=== PATIENT | male | born 1960 | race Caucasian/White ===

== ENCOUNTER 2021-01-23 18:46 | Emergency (ER) | payer OTHER, SELFPAY ==
[2021-01-23 19:17] VITALS: BP 149/79; PULSE 94; RESP 18; TEMP 36.8; O2SAT 95; BMI 42.3
--- NOTE | 2021-01-23 20:28 | ED_ITS ---
HPI - Skin/Abscess/Foreign Bdy General Chief complaint: Skin/Abscess/Foreign Body Stated complaint: abscess Source: patient Mode of arrival: ambulatory Limitations: no limitations History of Present Illness HPI narrative: 60-year-old male with significant past medical history for hypertension, coronary artery disease, and obesity presents with cellulitis and abscess to the right distal medial aspect of forearm. He was treated approximately 1 week ago with I&D and doxycycline. He states that for several days after I&D and doxycycline that the area has been draining, and that the swelling and redness has decreased over the past week. He noticed today that the lump is larger, more tender, the redness seems to be increasing. When he presses on the proximal aspect of the abscess he notes drainage at the more distal aspect of the wound. He does not describe any fevers, chills, chest pain or pressure, palpitations, shortness of breath, diaphoresis, abdominal pain, abdominal distention, dysuria, hematuria, edema, dizziness, lightheadedness, weakness, fatigue, or any other concerning symptoms. MD complaint: abscess/boil Onset (ago): week(s) (1) Tetanus up to date: yes Location: RUE Severity: moderate Severity scale (1-10): 6 Quality: aching and constant Pain Consistency: constant Relieving factors: none Exacerbating factors: palpation Context: recent antibiotic Associated symptoms: denies other symptoms Treatments prior to arrival: attempted to drain pus at home and antibiotic Related Data Previous Rx's Medication Instructions Recorded doxycycline monohydrate 100 mg PO BID 5 Days #10 cap 01/23/21 sulfamethoxazole-trimethoprim 1 tab PO Q12H 10 Days #20 tab 01/23/21 [Bactrim DS] Allergies Allergy/AdvReac Type Severity Reaction Status Date / Time almond [ALMONDS] Allergy Unknown UNKNOWN Unverified 07/29/20 14:54 cat dander [CAT] Allergy Unknown UNKNOWN Unverified 07/29/20 14:54 pecan nut [PECAN] Allergy Unknown UNKNOWN Unverified 07/29/20 14:54 tree and shrub pollen [TREE] Allergy Unknown UNKNOWN Unverified 07/29/20 14:54 walnut [WALNUT] Allergy Unknown UNKNOWN Unverified 07/29/20 14:54 GRASS Allergy Unknown UNKNOWN Uncoded 07/29/20 14:54 Review of Systems Review of Systems: Constitutional: No Fever, No Chills ENT/Mouth: No Ear Pain, No Hoarseness, No sore throat Eyes: No Eye Pain, No Swelling, No Redness, No Foreign Body Cardiovascular: No Chest Pain, No SOB Respiratory: No Cough, No Dyspnea Gastrointestinal: No Nausea, No Vomiting, No Diarrhea, No abdominal Pain Genitourinary: No Dysuria, No Hematuria Musculoskeletal: No joint pain, No Myalgias, No Joint Swelling Skin: Positive abscess to the right medial aspect of the distal forearm, No Skin lacerations, No rash Neuro: No Weakness, No Numbness, No Paresthesias, No Loss of Consciousness, No Dizziness, No Headache Psych: No Anxiety/Panic, No Depression Heme/Lymph: no easy bruising, no Lymphadenopathy Endocrine: No Polyuria, No Polydipsia Yes all other systems are reviewed and are negative [facility] Past Medical History Attestation statement: The following information was validated with the patient. Source: old records reviewed Medical History (Updated 01/23/21 @ 20:56 by Vilma Kaur NP) Carotid artery disease Carotid artery disease Hypertension Social History Social History Alcohol intake: never Smoked in Last 30 Days: No Use of substances other than those prescribed or required for medical reasons: No Advance Directives: No Advance Directives Information Provided: No Physical Exam Vital Signs: Vital Signs: Last Vital Signs Temp 98.3 F 01/23/21 19:17 Pulse 94 01/23/21 19:17 Resp 18 01/23/21 19:17 BP 149/79 H 01/23/21 19:17 Pulse Ox 95 01/23/21 19:17 Body Mass Index 42.3 Appearance: Alert. Oriented X3. No acute distress. Eyes: Pupils equal, round and reactive to light. EOMI ENT: Pharynx normal. Neck: Normal inspection. Neck supple. CVS: Normal heart rate and rhythm. Pulses normal. Respiratory: No respiratory distress. Lung sounds clear to auscultation all lobes Abdomen: Soft and nontender. Skin: 6 cm area of induration erythema with multiple pustules that are draining to the right medial aspect of the distal forearm, otherwise all other visible Skin warm and dry. Normal skin color. Normal skin turgor. Extremities: No lower extremity edema. Moves all extremities against resistance, strength 5/5, equal pulses and brisk capillary refill to all extremities Neuro: No motor deficit. No sensory deficit. Cranial nerves 2-12 intact, gait well balanced well coordinated Course Course Course Narrative: 60-year-old male with significant past medical history for hypertension, coronary artery disease, and obesity presents with cellulitis and abscess to the right distal medial aspect of forearm. Wound started off as a pustule and gradually increased, has been seen by primary care about a week ago they performed I&D and gave doxycycline. He has been on doxy for 5 days, noticed an improvement for about 4 days after I&D, has been using warm compress and trying to express drainage on his own however today he noted that the wound is getting bigger and the reddened area is larger. We will I&D this abscess, add Bactrim and have patient follow-up in 3 days for wound check. Patient is afebrile, appears nontoxic, vital signs are within normal limits and stable. Prepped and draped in sterile fashion, wound culture obtained, approximately 5 mL of purulent drainage expressed from the site. Patient tolerated procedure well. Fifteen blade used to make a 3 mm incision. He does not have any axillary or cervical lymphadenopathy, has full range of motion to all extremities, no tendon injury or deficit noted, brisk capillary refill and equal pulses. Patient verbalized understanding of and agrees plan of care discharge home. Procedures Abscess I/D Site: upper extremity Side (if applicable): right Technique: incised with blade Amount of fluid expressed (mL): 5 Sent for culture/gram staining?: Yes Irrigation: No Packing used?: none MDM - Skin/Abscess/Foreign Bdy Differential Diagnosis Differential diagnosis: Likely abscess of skin or subcutaneous tissue and cell ulitis Medical Records Attestation: I reviewed the patient's medical records. Discharge Plan Discharge Clinical Impression: Abscess of skin or subcutaneous tissue Qualifiers: Site of cutaneous abscess: extremity Site of cutaneous abscess of extremity: upper extremity Laterality: right Qualified Code(s): L02.413 - Cutaneous abscess of right upper limb Cellulitis Qualifiers: Site of cellulitis: extremity Site of cellulitis of extremity: upper extremity Laterality: right Qualified Code(s): L03.113 - Cellulitis of right upper limb Patient Disposition: Home, Self-Care Instructions: Cellulitis (ED), Abscess (ED), Abscess Follow-up (ED), Abscess Incision and Drainage (DC) Additional Instructions: You were evaluated for recurrent abscess and cellulitis to the right forearm. We made a small incision and drained some purulent fluid. Your culture is pending. Please take doxycycline for 10 days, I prescribed more medication for you. We have added Bactrim DS 1 tab twice a day for the next 10 days. Please continue to use warm compresses, and return for wound evaluation in 3 days. If you notice fevers, chills, difficulty moving your arm, loss of sensation or any other concerning symptoms please return to the emergency department immediately. The symptoms are an indication of a serious illness called sepsis. Use Tylenol or Motrin as needed for pain management. Thank you for choosing this emergency department for evaluation. Please follow-up with primary care physician as needed. Return to the emergency department for any new, concerning, or worsening symptoms. Prescriptions: New doxycycline monohydrate 100 mg capsule 100 mg PO BID 5 Days Qty: 10 RF: 0 sulfamethoxazole-trimethoprim [Bactrim DS] 800-160 mg tablet 1 tab PO Q12H 10 Days Qty: 20 RF: 0 Interventions: ED Discharge Assessment Last Done: 01/23/21 21:18 Discharge Date/Time: 01/23/21 21:13
--- NOTE | 2021-01-23 21:52 | PC.NURSE ---
PT VERBALIZED AN UNDERSTANDING OF WOUND CARE AND WORSENING S/SX OF INFECTION. PT PINK AREA TRACED WITH WOUND MARKER AND PT WILL F/U IN 2 DAYS FOR WOUND CHECK HERE AT THE ED.
== END 2021-01-23 21:13 | disposition home or self-care (01) ==
PROVIDERS: Emergency Provider Internal Medicine; PCP Nurse Practitioner Adult Health
DX: L02.413 Cutaneous abscess of right upper limb (principal); L03.113 Cellulitis of right upper limb; I25.10 Atherosclerotic heart disease of native coronary artery without angina pectoris; I10 Essential (primary) hypertension; Z79.899 Other long term (current) drug therapy
CPT/HCPCS: 10060; 87071; 87147; 87186; 87205; 99284

== ENCOUNTER 2021-01-26 07:57 | Emergency (ER) | payer OTHER, SELFPAY ==
[2021-01-26 08:09] VITALS: BP 150/83; PULSE 96; RESP 18; TEMP 36.9; O2SAT 97; BMI 42.3
--- NOTE | 2021-01-26 08:23 | ED.WOUNDLAC ---
HPI - Wound/Laceration General Chief Complaint: Wound/Laceration Stated Complaint: wound check Time Seen by Provider: 01/26/21 08:14 Source: patient Mode of arrival: ambulatory Limitations: no limitations History of Present Illness HPI narrative: Patient history of MRSA infection in the right wrist for last 1 week on doxycycline and Bactrim was seen here 3 days ago I and D was done comes here for wound recheck. Wound looks much better now no significant pus discharge patient denies any fever Related Data Previous Rx's Medication Instructions Recorded doxycycline monohydrate 100 mg PO BID 5 Days #10 cap 01/23/21 sulfamethoxazole-trimethoprim 1 tab PO Q12H 10 Days #20 tab 01/23/21 [Bactrim DS] sulfamethoxazole-trimethoprim 1 tab PO BID #60 tab 01/26/21 [Bactrim DS] Allergies Allergy/AdvReac Type Severity Reaction Status Date / Time almond [ALMONDS] Allergy Unknown UNKNOWN Unverified 07/29/20 14:54 cat dander [CAT] Allergy Unknown UNKNOWN Unverified 07/29/20 14:54 pecan nut [PECAN] Allergy Unknown UNKNOWN Unverified 07/29/20 14:54 tree and shrub pollen [TREE] Allergy Unknown UNKNOWN Unverified 07/29/20 14:54 walnut [WALNUT] Allergy Unknown UNKNOWN Unverified 07/29/20 14:54 GRASS Allergy Unknown UNKNOWN Uncoded 07/29/20 14:54 Review of Systems Review of Systems: Yes all other systems are reviewed and are negative PMFSH Past Medical History Medical History Carotid artery disease Carotid artery disease Hypertension Social History Social History Alcohol intake: never Advance Directives: No Advance Directives Information Provided: No Physical Exam Vital Signs: Vital Signs: Last Vital Signs Temp 98.4 F 01/26/21 08:09 Pulse 96 01/26/21 08:09 Resp 18 01/26/21 08:09 BP 150/83 H 01/26/21 08:09 Pulse Ox 97 01/26/21 08:09 Body Mass Index 42.3 Const: General: no acute distress Orientation/consciousness: patient oriented x3 Neuro: General: patient oriented x3 Extrem: Elbow/forearm/wrist images: 1. Healing abscess with induration no fluctuancy seen good range of painless movement MDM - Wound/Laceration MDM Narrative Medical decision making narrative: Patient with healing abscess right forearm , pus culture showed MRSA which is resistant to doxycycline but patient already on Bactrim advised the patient to continue Bactrim for now Discharge Plan Discharge Clinical Impression: Abscess Patient Disposition: Home, Self-Care Instructions: Abscess Follow-up (ED) Additional Instructions: Local care as advised. Continue antibiotics, your culture is resistant to doxycycline you may continue till finished the course. Continue Bactrim Prescriptions: New sulfamethoxazole-trimethoprim [Bactrim DS] 800-160 mg tablet 1 tab PO BID Qty: 60 RF: 0 No Action doxycycline monohydrate 100 mg capsule 100 mg PO BID 5 Days Qty: 10 RF: 0 sulfamethoxazole-trimethoprim [Bactrim DS] 800-160 mg tablet 1 tab PO Q12H 10 Days Qty: 20 RF: 0 Interventions: ED Discharge Assessment Last Done: 01/26/21 08:35 Discharge Date/Time: 01/26/21 08:35
== END 2021-01-26 08:35 | disposition home or self-care (01) ==
PROVIDERS: Emergency Provider Internal Medicine; PCP Nurse Practitioner Adult Health
DX: L02.413 Cutaneous abscess of right upper limb (principal); M79.631 Pain in right forearm; Z79.899 Other long term (current) drug therapy
CPT/HCPCS: 99283

== ENCOUNTER 2021-12-02 04:49 | Emergency (ER) | payer MEDICAID, SELFPAY ==
[2021-12-02 05:16] VITALS: BP 162/82; PULSE 87; RESP 16; TEMP 36.8; O2SAT 92; BMI 36.0
[2021-12-02 05:18] VITALS: BP 163/80; PULSE 87; RESP 18; TEMP 36.8; O2SAT 100; BMI 36.0
== END 2021-12-02 06:40 | disposition left against medical advice (07) ==
PROVIDERS: Emergency Provider Emergency Medicine; PCP Nurse Practitioner Adult Health
DX: K08.89 Other specified disorders of teeth and supporting structures (principal)
CPT/HCPCS: 99281; 99284

== ENCOUNTER 2022-04-29 16:52 | Emergency (ER) | payer MEDICAID, SELFPAY ==
--- NOTE | ~2022-04-29 | XR_ITS ---
EXAMINATION: XR CHEST CLINICAL INFORMATION: Cough. COMPARISON: Chest radiograph 12/03/2019 TECHNIQUE: Frontal view of the chest was obtained. FINDINGS: Normal appearance of the cardiomediastinal structures. No effusions or pneumothoraces. Normal pattern of pulmonary vasculature. No focal pulmonary consolidation. Partial visualization of multiple vascular clips in projection with the medial right lower anterior cervical triangle. XR/XR chest 1V IMPRESSION: *No acute cardiopulmonary abnormalities.
[2022-04-29 16:58] VITALS: BP 161/96; PULSE 102; RESP 16; TEMP 36.7; O2SAT 95; BMI 38.9
[2022-04-29 17:29] LABS: COVID-19 Test Negative (Negative); IDNOW Serial# 08D9AD1C; Influenza A Negative (Negative); Influenza B2 Negative (Negative)
[2022-04-29] MEDS: Albuterol/Iprat 2.5/0.5MG 3 ML AMPUL.NEB INHALE (20:47)
[2022-04-29 20:48] VITALS: PULSE 102; RESP 18; O2SAT 93
--- NOTE | 2022-04-29 21:23 | ED_ITS ---
HPI - URI/Sore Throat General Chief Complaint: Upper Respiratory Symptoms Stated Complaint: sinus infection/coughing Time Seen by Provider: 04/29/22 20:16 Source: patient Mode of arrival: ambulatory Limitations: no limitations History of Present Illness HPI Narrative: 62-year-old male with a history of asthma here with reports of 3 weeks of cough, chest congestion, wheezing, sinus pressure and sinus pain. Patient has tested himself multiple times for COVID and all are negative. He was seen at urgent care and was prescribed 1 week of prednisone which she completed yesterday. He is here as he is having continued symptoms and does not feel any relief from his albuterol or completion of the prednisone. He denies any chest pain, shortness of breath, fever, leg swelling or leg pain. He denies any history of admissions for asthma or intubation history. He is vaccinated for COVID Related Data Home Medications Medication Instructions Recorded Confirmed levothyroxine 100 mcg tablet 1 tab PO DAILY 12/02/21 12/02/21 lorazepam 1 mg tablet 1 mg PO DAILY 12/02/21 12/02/21 losartan 25 mg tablet 1 tab PO DAILY 12/02/21 12/02/21 sertraline 100 mg tablet 1 tab PO BID 12/02/21 12/02/21 simvastatin 40 mg tablet 1 tab PO BEDTIME 12/02/21 12/02/21 Previous Rx's Medication Instructions Recorded benzonatate 200 mg capsule 200 mg PO TID PRN cough #20 caps 04/29/22 codeine 10 mg-guaifenesin 100 mg/5 10 ml PO Q4-6H PRN cough #120 mL 04/29/22 mL oral liquid (Virtussin AC) doxycycline monohydrate 100 mg 100 mg PO BID #20 caps 04/29/22 capsule prednisone 20 mg tablet 40 mg PO DAILY #8 tabs 04/29/22 Allergies Allergy/AdvReac Type Severity Reaction Status Date / Time cephalexin [From Keflex] Allergy Severe Anaphylaxis Verified 12/02/21 05:31 almond [ALMONDS] Allergy Unknown UNKNOWN Unverified 07/29/20 14:54 cat dander [CAT] Allergy Unknown UNKNOWN Unverified 07/29/20 14:54 pecan nut [PECAN] Allergy Unknown UNKNOWN Unverified 07/29/20 14:54 tree and shrub pollen [TREE] Allergy Unknown UNKNOWN Unverified 07/29/20 14:54 walnut [WALNUT] Allergy Unknown UNKNOWN Unverified 07/29/20 14:54 GRASS Allergy Unknown UNKNOWN Uncoded 07/29/20 14:54 Review of Systems Review of Systems: Yes all other systems are reviewed and are negative Constitutional: Constitutional: Reports no additional constitutional complaints, Denies body ache(s), Denies chills, Denies fever(s), Denies headache(s) and Denies weakness Eyes: Eyes: Reports no additional eye complaints and Denies change in vision ENT: Reports system reviewed and no additional complaints, except as documented, Denies dizziness, Denies headache(s), Denies nasal congestion, Denies nasal discharge, Denies neck pain, Reports sinus pain and Reports sinus pressure Cardiovascular: Cardiovascular: Reports no additional cardiovascular complaints, Denies chest pain, Denies leg edema and Denies dyspnea Respiratory: Respiratory: Reports no additional respiratory complaints, Re ports cough, Denies dyspnea and Reports wheezing Gastrointestinal: Gastrointestinal: Reports no additional gastrointestinal complaints, Denies abdominal pain, Denies diarrhea, Denies nausea and Denies vomiting Genitourinary: Genitourinary: Denies urinary incontinence Musculoskeletal: Musculoskeletal: Reports no additional musculoskeletal complaints, Denies back pain, Denies arthralgias, Denies joint swelling, Denies neck pain, Denies numbness and Denies tingling Integumentary/Breasts: Skin/Breast: Reports system reviewed and no additional complaints, except as docu and Denies rash Neurologic: Denies Abnormal speech present, Denies dizziness, Denies headache(s), Denies numbness, Denies tingling and Denies weakness Allergic/Immunologic: Allergic/Immunologic: Reports wheezing PMFSH Past Medical History Attestation statement: The following information was validated with the patient. Source: old records reviewed Medical History Carotid artery disease Carotid artery disease Hypertension Social History Social History Alcohol intake: never Patient Tobacco Use Status: Current everyday Tobacco user Advance Directives: No Advance Directives Information Provided: No Physical Exam Vital Signs: Vital Signs: Last Vital Signs Temp 98.1 F 04/29/22 16:58 Pulse 102 H 04/29/22 20:48 Resp 18 04/29/22 20:48 BP 161/96 H 04/29/22 16:58 Pulse Ox 95 04/29/22 16:58 O2 Del Method 04/29/22 16:58 BMI result Body Mass Index 38.9 Const: General: cooperative, healthy appearing, comfortable and no acute distress Orientation/consciousness: patient oriented x3 Limitations: no limitations HEENT: Head: Yes normal to inspection Ears: hearing grossly normal bilaterally and TM abnormal (Bilateral effusion) General nose exam: Normal external nose present Face and sinus: Yes normal facial exam and Yes sinus tenderness (Frontal and maxillary. Nasal turbinate erythema bilaterally) Mouth: Normal oral and palatal mucosa present Throat: Yes posterior oropharynx normal Eyes: General: appearance normal, both eyes and all related structures Pupils: Equal, round and reactive pupils present Neck: Neck: Yes normal visual inspection, Yes full ROM and Yes no lymphadenopathy Chest: Chest palpation & inspection: normal inspection of the chest Resp: Other: Expiratory wheezing throughout Effort & Inspection: normal respiratory effort Cardio: Rate: regular rate Rhythm: regular rhythm Peripheral pulses: Peripheral pulses 2+ throughout GI: Inspection: Yes normal to inspection Palpation (GI): Soft to palpation and nontender Auscultation: normal bowel sounds Back/Spine/Pelvis: Thoracic/Lumbar Spine: thoracic and lumbar spine normal to inspection Skin: General skin exam: no rashes or lesions noted Neuro: General: patient oriented x3, no focal motor deficits and normal sensation to monofilament Cranial nerves: Yes Equal, round and reactive pupils present Cognition (Neuro): normal cognition Speech: No Abnormal speech present Gait exam (Neuro): Normal gait present Motor exam (neuro): 5/5 motor strength present throughout Extrem: General: Yes normal to inspection Course Course Course Narrative: 2199-chest x-ray shows no acute finding. COVID screen negative. patient feels improved receiving DuoNeb. Likely bronchitis, sinusitis,asthma flare MDM - URI/Sore Throat MDM Narrative Medical decision making narrative: 8-year-old male with a known history of asthma here with 3 weeks of chest congestion cough, wheezing, sinus pressure and pain despite using albuterol in completing a 6 day course of prednisone. On arrival expiratory wheezing throughout. Exam consistent with sinusitis will give DuoNeb, p.o. prednisone, cough suppressant, oral antibiotic and reassess Obtain chest x-ray, COVID screen Medical Records Attestation: I reviewed the patient's medical records. Lab Data Attestation: I reviewed the patient's lab results. Labs: Lab Results 04/29/22 04/29/22 Range/Units 17:06 17:06 COVID-19 ([facility]) Negative (Negative) COVID-19 Clin Com See Note Influenza Type A ([facility]) Negative (Negative) Influenza Type B ([facility]) Negative (Negative) Influenza A & B Note See Note Imaging Data Chest x-ray: Attestation: I personally reviewed and interpreted this imaging study as follows: Radiologist's impression: [address] [address] XRay Report Signed Patient: Truman Rosas MR#: [id number] : 1960 Acct:[id number] Age/Sex: 62 / M ADM Date: 04/29/22 Loc: .ED Attending Dr: Ordering Physician: Generic ED Physician Date of Service: 04/29/22 Procedure(s): XR chest 1V Accession Number(s): [id number] cc: Generic ED Physician~ EXAMINATION: XR CHEST CLINICAL INFORMATION: Cough. COMPARISON: Chest radiograph 12/03/2019 TECHNIQUE: Frontal view of the chest was obtained. FINDINGS: Normal appearance of the cardiomediastinal structures. No effusions or pneumothoraces. Normal pattern of pulmonary vasculature. No focal pulmonary consolidation. Partial visualization of multiple vascular clips in projection with the medial right lower anterior cervical triangle. XR/XR chest 1V IMPRESSION: *No acute cardiopulmonary abnormalities. ? Discharge Plan Discharge Clinical Impression: Bronchitis, Sinusitis, Asthma Patient Disposition: Home, Self-Care Instructions: Asthma (ED), Sinusitis (ED), Acute Bronchitis (ED) Additional Instructions: Start your medications tomorrow Follow-up with her primary care doctor for any persistent symptoms Return for any chest pain, worsening shortness of breath, fever Prescriptions: New doxycycline monohydrate 100 mg capsule 100 mg PO BID Qty: 20 0RF prednisone 20 mg tablet 40 mg PO DAILY Qty: 8 0RF benzonatate 200 mg capsule 200 mg PO TID PRN (Reason: cough) Qty: 20 0RF codeine-guaifenesin [Virtussin AC] 10-100 mg/5 mL liquid 10 ml PO Q4-6H PRN (Reason: cough) Qty: 120 0RF No Action sertraline 100 mg tablet 1 tab PO BID simvastatin 40 mg tablet 1 tab PO BEDTIME levothyroxine 100 mcg tablet 1 tab PO DAILY losartan 25 mg tablet 1 tab PO DAILY lorazepam 1 mg tablet 1 mg PO DAILY Referrals: Ivonne Coley NP [Primary Care Provider] - Interventions: ED Discharge Assessment Last Done: 04/29/22 21:31 Discharge Date/Time: 04/29/22 21:31
[2022-04-29] MEDS: predniSONE 20 MG TABLET 60 MG PO (21:25)
[2022-04-29] MEDS: guaiFEN/Codeine SF 200/20/10ML 10 ML LIQUID PO (21:26)
== END 2022-04-29 21:31 | disposition home or self-care (01) ==
PROVIDERS: Emergency Provider Emergency Medicine; PCP Nurse Practitioner Adult Health
DX: J40 Bronchitis, not specified as acute or chronic (principal); J32.9 Chronic sinusitis, unspecified; R05.9 Cough, unspecified; Z20.822 Contact with and (suspected) exposure to COVID-19
CPT/HCPCS: 71045; 87502; 87635; 94640; 99282; 99283

== ENCOUNTER 2022-06-28 21:57 | Emergency (ER) | payer MEDICAID, SELFPAY ==
[2022-06-28 22:00] VITALS: BP 187/98; PULSE 88; RESP 18; TEMP 36.7; O2SAT 98; BMI 36.0
--- NOTE | 2022-06-28 22:14 | ED_ITS ---
HPI - Dental/Oral General Chief complaint: Dental/Oral Stated complaint: tooth pain Time Seen by Provider: 06/28/22 22:14 Source: patient Mode of arrival: ambulatory Limitations: no limitations History of Present Illness HPI Narrative: 62-year-old male presents to the ER for evaluation of right upper tooth pain that started yesterday. He was recently on oral antibiotics with plan for a root canal in July. He states he completes his course of amoxicillin about 5 days ago. While he was on the antibiotics his pain completely resolved. The pain started to slowly come back yesterday. Today it has progressively gotten worse and he is almost to the point of tears. He states the pain is constant, throbbing and he cannot even think straight. He denies any facial swelling. He has been taking anti-inflammatories at home with minimal relief. He follows up with [facility] and is going to try to go there tomorrow. MD Complaint: tooth pain Location: Tooth # (3) Onset (ago): day(s) (1) Duration: constant Severity: severe Severity scale (1-10): 10 Relieving factors: nothing Exacerbating factors: chewing, cold and heat Context: trauma (mechanism) and poor dental care Treatment prior to arrival: topical analgesic and oral analgesic Related Data Home Medications Medication Instructions Recorded Confirmed levothyroxine 100 mcg tablet 1 tab PO DAILY 12/02/21 12/02/21 lorazepam 1 mg tablet 1 mg PO DAILY 12/02/21 12/02/21 losartan 25 mg tablet 1 tab PO DAILY 12/02/21 12/02/21 sertraline 100 mg tablet 1 tab PO BID 12/02/21 12/02/21 simvastatin 40 mg tablet 1 tab PO BEDTIME 12/02/21 12/02/21 Previous Rx's Medication Instructions Recorded benzonatate 200 mg capsule 200 mg PO TID PRN cough #20 caps 04/29/22 codeine 10 mg-guaifenesin 100 mg/5 10 ml PO Q4-6H PRN cough #120 mL 04/29/22 mL oral liquid (Virtussin AC) doxycycline monohydrate 100 mg 100 mg PO BID #20 caps 04/29/22 capsule prednisone 20 mg tablet 40 mg PO DAILY #8 tabs 04/29/22 clindamycin HCl 300 mg capsule 300 mg PO Q6H 7 days #28 caps 06/28/22 oxycodone 5 mg tablet 5 mg PO Q6H PRN severe pain (scale 06/28/22 score 7-10) #9 tabs Allergies Allergy/AdvReac Type Severity Reaction Status Date / Time cephalexin [From Keflex] Allergy Severe Anaphylaxis Verified 06/28/22 22:00 almond [ALMONDS] Allergy Unknown UNKNOWN Verified 06/28/22 22:00 cat dander [CAT] Allergy Unknown UNKNOWN Verified 06/28/22 22:00 pecan nut [PECAN] Allergy Unknown UNKNOWN Verified 06/28/22 22:00 tree and shrub pollen [TREE] Allergy Unknown UNKNOWN Verified 06/28/22 22:00 walnut [WALNUT] Allergy Unknown UNKNOWN Verified 06/28/22 22:00 GRASS Allergy Unknown UNKNOWN Uncoded 07/29/20 14:54 Review of Systems Review of Systems: Constitutional: No Fever, No Chills ENT/Mouth: No sore throat, No Rhinorrhea, No Swallowing Difficulty, +Dental Pain Eyes: No Eye Pain, No Swelling, No Redness Cardiovascular: No Chest Pain, No SOB, No Orthopnea, No Edema Respiratory: No Cough, No Sputum, No Wheezing, No dyspnea Gastrointestinal: No Nausea, No Vomiting, No Diarrhea, No abdominal Pain Musculoskeletal: No joint pain, No Myalgias Skin: No Skin Lesions, No rash Neuro: No Weakness, No Numbness, No Dizziness, +Headache Psych: No Anxiety/Panic, No Depression Heme/Lymph: No Bruising, No Lymphadenopathy PMFSH Past Medical History Medical History Carotid artery disease Carotid artery disease Hypertension Social History Social History Alcohol intake: never Patient Tobacco Use Status: Current everyday Tobacco user Advance Directives: No Advance Directives Information Provided: No Physical Exam Vital Signs: Vital Signs: Last Vital Signs Temp 98.0 F 06/28/22 22:00 Pulse 88 06/28/22 22:00 Resp 18 06/28/22 22:00 BP 187/98 H 06/28/22 22:00 Pulse Ox 98 06/28/22 22:00 O2 Del Method 06/28/22 22:00 BMI result Body Mass Index 36.0 Appearance: Alert. Oriented X3. No acute distress. HEENT: normal external inspection. No facial swelling Pharynx with moist mucous membranes. Poor dentition. Upper molar 3. Is cracked with exposed pulp, associated gingival tenderness without swelling or fluctuance. No trismus. Neck: Normal inspection. No lymphadenopathy CVS: Normal heart rate and rhythm. Pulses normal. Respiratory: No respiratory distress. Skin: Skin warm and dry. Normal skin color. Normal skin turgor. No rashes. Extremities: Normal inspection x4 Neuro: Oriented X 3. Grossly normal, nonfocal Course Course Course Narrative: 8-year-old male with history of a broken tooth requiring a root canal presents to the ER for evaluation of worsening pain in the area since yesterday. He was recently on antibiotics with improvement in the pain. On examination today he has no evidence of a dental abscess. He does have significant dental decay and exposed pulp. Will plan to prescribe a course of antibiotics, pain control and have him follow-up with his dentist 1st thing tomorrow. He is stable for discharge home. Patient agrees with plan. Discharge Plan Discharge Clinical Impression: Toothache Patient Disposition: Home, Self-Care Instructions: Toothache (ED) Additional Instructions: Take the prescribed antibiotic as directed. Start taking 1st thing tomorrow morning. Call your dentist 1st thing tomorrow morning as well. Recommend taking alternating doses of high-dose ibuprofen and Tylenol around the clock. Avoid foods and drinks that her very hot or very cold. If you develop new or worsening symptoms call 911 or come back to the ER for further evaluation. Prescriptions: New clindamycin HCl 300 mg capsule 300 mg PO Q6H 7 Days Qty: 28 0RF oxycodone 5 mg tablet 5 mg PO Q6H PRN (Reason: severe pain (scale score 7-10)) Qty: 9 0RF Rx Instructions: Partial Fill upon patient request. No Action doxycycline monohydrate 100 mg capsule 100 mg PO BID Qty: 20 0RF prednisone 20 mg tablet 40 mg PO DAILY Qty: 8 0RF benzonatate 200 mg capsule 200 mg PO TID PRN (Reason: cough) Qty: 20 0RF codeine-guaifenesin [Virtussin AC] 10-100 mg/5 mL liquid 10 ml PO Q4-6H PRN (Reason: cough) Qty: 120 0RF sertraline 100 mg tablet 1 tab PO BID simvastatin 40 mg tablet 1 tab PO BEDTIME levothyroxine 100 mcg tablet 1 tab PO DAILY losartan 25 mg tablet 1 tab PO DAILY lorazepam 1 mg tablet 1 mg PO DAILY
[2022-06-28] MEDS: oxyCODONE HCl Immed Release 5 MG TABLET PO (22:46)
[2022-06-28] MEDS: Clindamycin HCL 150 MG CAPSULE 450 MG PO (22:46)
[2022-06-28] MEDS: Ketorolac Tromethamine 30 MG/ML VIAL IM (22:46)
[2022-06-28] MEDS: Acetaminophen 325 MG TABLET 975 MG PO (22:46)
== END 2022-06-28 22:55 | disposition home or self-care (01) ==
LOC: HO.ED 22:46
PROVIDERS: Emergency Provider Emergency Medicine; PCP Nurse Practitioner Adult Health
DX: K08.89 Other specified disorders of teeth and supporting structures (principal); K03.81 Cracked tooth; I10 Essential (primary) hypertension; F17.200 Nicotine dependence, unspecified, uncomplicated
CPT/HCPCS: 96372; 99283; 99284; J1885

== ENCOUNTER 2023-12-04 05:16 | Emergency (ER) | payer MEDICAID, SELFPAY ==
--- NOTE | ~2023-12-04 | XR_ITS ---
EXAMINATION: XR KNEE, LEFT CLINICAL INFORMATION: Fall COMPARISON: None available. TECHNIQUE: Four views of the left knee. FINDINGS: Osseous alignment is anatomic. There is mild to moderate joint space narrowing along with osteophytosis. No acute fracture is seen. Moderate joint effusion noted. XR/XR knee LT 4V IMPRESSION: No fracture identified. Moderate joint effusion.
[2023-12-04 05:33] VITALS: BP 139/78; PULSE 88; RESP 16; TEMP 36.7; O2SAT 96; BMI 36.5
--- OUTSIDE RECORDS SUMMARY | 2023-12-04 06:36 | XMS_ITS | Continuity of Care Document ---
Author Name Unknown Organization [facility] Address [address] [place] [id number]- Care Team Providers Care Deputy Director Name Role Phone Brijesh FOX, Ivonne Ventura Primary Care Physician Encounter [facility] Date(s): 07/15/20 - 08/14/20 [facility] [address] [place] [id number]- [facility] Allergies, Adverse Reactions, Alerts Substance Reaction Severity Status Keflex Active Nuts Active Seasonale Active Other Food Allergy Active Immunizations Not Given Vaccine Date Status Refusal Reason influenza virus vaccine, inactivated 1 08/05/20 No t Given Patient Refuses influenza virus vaccine, inactivated 08/04/20 Not Given Patient Refuses pneumococcal 23-valent vaccine 2 08/05/20 Not Give n Patient Refuses pneumococcal 23-valent vaccine 08/04/20 Not Given Patient Refuses 1Result Comment: pt states he will get this outpatient 2Result Comment: pt states he will get this outpatient Medications acetaminophen 325 mg oral tablet 650 mg, By Mouth, Every 4 hours, Refills 0, Maintenance, 08/05/20 13:38:00 EDT Start Date: 08/05/20 Status: Ordered aspirin 81 mg oral delayed release tablet 81 mg, 1, tablet, By Mouth, Daily, # 30 tablet, Refills 0, Tot. Refills 0, Maintenance, 08/05/20 11:42:00 EDT, Route to Pharmacy Electronically, [facility], 170, cm, 08/05/20 8:25:00 EDT, Height, 117, kg, 08/03/20 21:09:00 EDT, Dry Weight Start Date: 08/05/20 Status: Ordered Azithromycin 5 Day Dose Pack 250 mg oral tablet 1 pack/packet, By Mouth, Once, # 6 tablet, 0 Refills, Soft Stop, 08/05/20 11:40:00 EDT, Tablet, [facility], 170, cm, 08/05/20 8:25:00 EDT, Height, 117, kg, 08/03/20 21:09:00 EDT, Dry Weight Start Date: 08/05/20 Status: Ordered chantix 0.5mg tablet 1 tablet = 0.5 mg, By Mouth, 2 times a day, 0 Refills, Maintenance, 07/26/20 16:00:00 EDT Start Date: 07/26/20 Status: Ordered Cozaar 25 mg oral tablet 25 mg, 1, tablet, By Mouth, Daily, # 30 tablet, Refills 0, Maintenance, 07/26/20 16:01:00 EDT Start Date: 07/26/20 Status: Ordered docusate sodium 100 mg oral capsule 100 mg, 1, capsule, By Mouth, 2 times a day, # 20 capsule, Refills 0, Tot. Refills 0, Maintenance, 08/05/20 13:38:00 EDT, Route to Pharmacy Electronically, [facility], 170, cm, :25:00 EDT, Height, 117, kg, 08/03/20 21:09:00 EDT... Start Date: 08/05/20 Stop Date: 08/15/20 Status: Ordered gabapentin 300 mg oral capsule 300 mg, 1, capsule, By Mouth, 3 times a day, # 90 capsule, Refills 2, Tot. Refills 2, Maintenance, 08/05/20 13:38:00 EDT, Route to Pharmacy Electronically, [facility], 170, cm, :25:00 EDT, Height, 117, kg, 08/03/20 21:09:00 EDT... Start Date: 08/05/20 Stop Date: 11/03/20 Status: Ordered levothyroxine 0.1 mg oral tablet 1 tablet = 100 mcg, By Mouth, Daily, # 30 tablet, 0 Refills, Maintenance, 07/15/20 9:49:00 EDT, Tablet Start Date: 07/15/20 Status: Ordered LORazepam 1 mg oral tablet 0 Refills, Maintenance, 07/15/20 9:49:00 EDT Start Date: 07/15/20 Status: Ordered sertraline 100 mg oral tablet 1 tablet = 100 mg, By Mouth, Daily, # 30 tablet, 0 Refills, Maintenance, 07/15/20 9:49:00 EDT, Tablet Start Date: 07/15/20 Status: Ordered simvastatin 40 mg oral tablet TAKE 1 TABLET BY MOUTH EVERY DAY Start Date: 07/15/20 Status: Ordered Problem List Condition Effective Dates Status Health Status Inform ant Amaurosis fugax of right eye(Confirmed) Active Asthma(Confirmed) Active ADHD(Confirmed) Active Right Carotid artery stenosis(Confirmed) Active 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
--- OUTSIDE RECORDS SUMMARY | 2023-12-04 06:36 | XMS_ITS | Continuity of Care Document ---
Author Name Unknown Organization [facility] Address [address] [place] [id number]- Care Team Providers Care Tightener Name Role Phone Brijesh FOX, Ivonne Ventura Primary Care Physician [phone] Encounter [facility] Date(s): 08/23/21 - 12/21/21 [facility] [address] [place], [place] [address] Attending Physician: Nilson Jones MD Admitting Physician: Nilson Jones MD Referring Physician: Nilson Jones MD Allergies, Adverse Reactions, Alerts Substance Reaction Severity Status Keflex Active Nuts Active Seasonale Active Other Food Allergy Active Immunizations Not Given Vaccine Date Status Refusal Reason pneumococcal 23-valent vaccine 1 08/05/20 Not Give n Patient Refuses pneumococcal 23-valent vaccine 08/04/20 Not Given Patient Refuses influenza virus vaccine, inactivated 2 08/05/20 No t Given Patient Refuses influenza virus vaccine, inactivated 08/04/20 Not Given Patient Refuses 1Result Comment: [...] 08/05/20 11:42:00 EDT, Route to Pharmacy Electronically, [facility], 170, cm, 08/05/20 8:25:00 EDT, Height, 117, kg, 08/03/20 21:09:00 EDT, Dry Weight Start Date: 08/05/20 Status: Ordered Azithromycin 5 Day Dose Pack 250 mg oral tablet 1 pack/packet, By Mouth, Once, # 6 tablet, 0 Refills, Soft Stop, 08/05/20 11:40:00 EDT, Tablet, [facility], 170, cm, 08/05/20 8:25:00 EDT, [...] 08/05/20 13:38:00 EDT, Route to Pharmacy Electronically, [facility], 170, cm, :25:00 EDT, Height, 117, kg, 08/03/20 21:09:00 EDT... Start Date: 08/05/20 Stop Date: 08/15/20 Status: Ordered gabapentin 300 mg oral capsule 300 mg, 1, capsule, By Mouth, 3 times a day, # 90 capsule, Refills 2, Tot. Refills 2, Maintenance, 08/05/20 13:38:00 EDT, Route to Pharmacy Electronically, [facility], 170, cm, :25:00 EDT, Height, [...] EVERY DAY Start Date: 07/15/20 Status: Ordered Zithromax 250 mg oral tablet 1 pack/packet, By Mouth, Once, # 6 tablet, 0 Refills, Soft Stop, 08/17/20 10:48:00 EDT, Tablet, [id number], 170, cm, 08/05/20 8:25:00 EDT, Height, 117, kg, 08/03/20 21:09:00 EDT, Dry Weight Start Date: 08/17/20 Status: Ordered Problem List Condition Effective Dates [...]
--- OUTSIDE RECORDS SUMMARY | 2023-12-04 06:36 | XMS_ITS | Continuity of Care Document ---
Author Name Unknown Organization [facility] Address [address] [place] [address]- Care Team Providers Care Vice Chancellor Name Role Phone Brijesh FOX, Ivonne Ventura Primary Care Physician Encounter [facility] [place] Date(s): 09/21/20 - 10/21/20 [facility] [address] [place], [place] [address] Attending Physician: Nati Yun Admitting Physician: Admtr, [id number] Referring Physician: Admtr, [id number] Allergies, Adverse Reactions, Alerts Substance Reaction Severity [...] 08/05/20 11:42:00 EDT, Route to Pharmacy Electronically, [facility], 170, cm, 08/05/20 8:25:00 EDT, Height, 117, kg, 08/03/20 21:09:00 EDT, Dry Weight Start Date: 08/05/20 Status: Ordered Azithromycin 5 Day Dose Pack 250 mg oral tablet 1 pack/packet, By Mouth, Once, # 6 tablet, 0 Refills, Soft Stop, 08/05/20 11:40:00 EDT, Tablet, [facility], 170, cm, 08/05/20 8:25:00 [...] 08/05/20 13:38:00 EDT, Route to Pharmacy Electronically, [facility], 170, cm, :25:00 EDT, Height, 117, kg, 08/03/20 21:09:00 EDT... Start Date: 08/05/20 Stop Date: 08/15/20 Status: Ordered gabapentin 300 mg oral capsule 300 mg, 1, capsule, By Mouth, 3 times a day, # 90 capsule, Refills 2, Tot. Refills 2, Maintenance, 08/05/20 13:38:00 EDT, Route to Pharmacy Electronically, [facility], 170, cm, :25:00 EDT, [...] Refills, Soft Stop, 08/17/20 10:48:00 EDT, Tablet, [id number], 170, cm, 08/05/20 8:25:00 EDT, Height, [...]
--- OUTSIDE RECORDS SUMMARY | 2023-12-04 06:36 | XMS_ITS | Continuity of Care Document ---
Author Name Unknown Organization [facility] Address [address] [place] [address]- Care Team Providers Care Securities Vault Supervisor Name Role Phone Ivonne Coley NP Primary Care Physician [phone] Encounter [facility] Date(s): 07/07/20 - 08/06/20 [facility] [address] [place] [address]- [facility] Allergies, Adverse Reactions, Alerts Substance Reaction Severity [...] 08/05/20 11:42:00 EDT, Route to Pharmacy Electronically, [facility], 170, cm, 08/05/20 8:25:00 EDT, Height, 117, kg, 08/03/20 21:09:00 EDT, Dry Weight Start Date: 08/05/20 Status: Ordered Azithromycin 5 Day Dose Pack 250 mg oral tablet 1 pack/packet, By Mouth, Once, # 6 tablet, 0 Refills, Soft Stop, 08/05/20 11:40:00 EDT, Tablet, [facility], 170, cm, 08/05/20 8:25:00 [...] 16:01:00 EDT Start Date: 07/26/20 Status: Ordered Dilaudid 2 mg oral tablet 1 tablet = 2 mg, By Mouth, Every 4 hours, PRN Pain , Moderate, for 5 days, # 30 tablet, 0 Refills, Acute 08/10/20 13:38:00 EDT, 08/05/20 13:38:00 EDT, Tablet, [facility], Partial fill upon patient request, 170, cm, 08/05/20 8:25:00 EDT,... Start Date: 08/05/20 Stop Date: 08/10/20 Status: Ordered docusate sodium 100 mg oral capsule 100 mg, 1, capsule, By Mouth, 2 times a day, # 20 capsule, Refills 0, Tot. Refills 0, Maintenance, 08/05/20 13:38:00 EDT, Route to Pharmacy Electronically, [facility], 170, cm, :25:00 EDT, Height, 117, kg, 08/03/20 21:09:00 EDT... Start Date: 08/05/20 Stop Date: 08/15/20 Status: Ordered gabapentin 300 mg oral capsule 300 mg, 1, capsule, By Mouth, 3 times a day, # 90 capsule, Refills 2, Tot. Refills 2, Maintenance, 08/05/20 13:38:00 EDT, Route to Pharmacy Electronically, [facility], 170, cm, :25:00 EDT, [...]
--- OUTSIDE RECORDS SUMMARY | 2023-12-04 06:36 | XMS_ITS | Continuity of Care Document ---
Author Name Unknown Organization [facility] Address [address] [place] [address]- Care Team Providers Care Wire Web Worker Name Role Phone Ivonne Coley NP Primary Care Physician Encounter [facility] Date(s): 09/10/20 - 09/17/20 [facility] [address] [place], [place] [address] Attending Physician: Nilson Jones MD Admitting Physician: Nilson Jones MD Referring Physician: Ivonne Coley NP Allergies, Adverse Reactions, Alerts Substance Reaction Severity [...] 08/05/20 11:42:00 EDT, Route to Pharmacy Electronically, [facility], 170, cm, 08/05/20 8:25:00 EDT, Height, 117, kg, 08/03/20 21:09:00 EDT, Dry Weight Start Date: 08/05/20 Status: Ordered Azithromycin 5 Day Dose Pack 250 mg oral tablet 1 pack/packet, By Mouth, Once, # 6 tablet, 0 Refills, Soft Stop, 08/05/20 11:40:00 EDT, Tablet, [facility], 170, cm, 08/05/20 8:25:00 [...] 08/05/20 13:38:00 EDT, Route to Pharmacy Electronically, [facility], 170, cm, :25:00 EDT, Height, 117, kg, 08/03/20 21:09:00 EDT... Start Date: 08/05/20 Stop Date: 08/15/20 Status: Ordered gabapentin 300 mg oral capsule 300 mg, 1, capsule, By Mouth, 3 times a day, # 90 capsule, Refills 2, Tot. Refills 2, Maintenance, 08/05/20 13:38:00 EDT, Route to Pharmacy Electronically, [facility], 170, cm, :25:00 EDT, [...] veins of leg(Confirmed) Active Venous stasis(Confirmed) Active Vital Signs Most recent to oldest [Reference Range]: 1 Height 170 cm (09/10/20 10:18 AM) Weight 114 kg (09/10/20 10:18 AM) Pulse Rate [55-90 bpm] 70 bpm (09/10/20 10:18 AM) Body Mass Index [18.5-24.99] 39.45 *>HHI* (09/10/20 10:18 AM) Blood Pressure [90-138/55-84 mm Hg] 134/ 82mm Hg (09/10/20 10:18 AM) Blood pressure sites Arm, right (09/10/20 10:18 AM) Weight Obtained Via Patient/family state d (09/10/20 10:18 AM)
--- OUTSIDE RECORDS SUMMARY | 2023-12-04 06:36 | XMS_ITS | Continuity of Care Document ---
Author Name Unknown Organization [facility] Address [address] [place] [address]- Care Team Providers Care Cake Icer And Packer Name Role Phone Ivonne Coley NP Primary Care Physician Encounter [facility] Date(s): 08/20/20 - 09/19/20 [facility] [address] [place] [address]- Allergies, Adverse Reactions, Alerts Substance Reaction Severity [...] 08/05/20 11:42:00 EDT, Route to Pharmacy Electronically, [facility], 170, cm, 08/05/20 8:25:00 EDT, Height, 117, kg, 08/03/20 21:09:00 EDT, Dry Weight Start Date: 08/05/20 Status: Ordered Azithromycin 5 Day Dose Pack 250 mg oral tablet 1 pack/packet, By Mouth, Once, # 6 tablet, 0 Refills, Soft Stop, 08/05/20 11:40:00 EDT, Tablet, [facility], 170, cm, 08/05/20 8:25:00 EDT, [...] 08/05/20 13:38:00 EDT, Route to Pharmacy Electronically, [facility], 170, cm, :25:00 EDT, Height, 117, kg, 08/03/20 21:09:00 EDT... Start Date: 08/05/20 Stop Date: 08/15/20 Status: Ordered gabapentin 300 mg oral capsule 300 mg, 1, capsule, By Mouth, 3 times a day, # 90 capsule, Refills 2, Tot. Refills 2, Maintenance, 08/05/20 13:38:00 EDT, Route to Pharmacy Electronically, [facility], 170, cm, :25:00 EDT, Height, [...]
--- OUTSIDE RECORDS SUMMARY | 2023-12-04 06:36 | XMS_ITS | Continuity of Care Document ---
Author Name Unknown Organization [facility] Address [address] [place] [address]- Care Team Providers Care Petroleum Geologist Name Role Phone Ivonne Coley NP Primary Care Physician Encounter [facility] [place] [facility] [id number] Date(s): 07/15/20 - 07/22/20 [facility] [address] [place] [address]- [facility] Attending Physician: Nilson Jones MD Admitting Physician: Nilson Jones MD Referring Physician: Ivonne Coley NP Allergies, Adverse Reactions, Alerts No Known Medication Allergies Medications Adult Aspirin 81 mg oral delayed release tablet 1 tablet = 81 mg, By Mouth, Daily, 0 Refills, Maintenance, 07/15/20 9:50:00 EDT Start Date: 07/15/20 Status: Ordered Albuterol (Eqv-ProAir HFA) 90 mcg/inh inhalation aerosol 0 Refills, Maintenance, 07/15/20 9:50:00 EDT Start Date: 07/15/20 Status: Ordered amphetamine-dextroamphetamine 10 mg oral tablet TAKE 1 TABLET (10 MG TOTAL) BY MOUTH 2 (TWO) TIMES A DAY FOR 28 DAYS. Start Date: 07/15/20 Status: Ordered levothyroxine 0.1 mg oral tablet 1 tablet = 100 mcg, By Mouth, Daily, # 30 tablet, 0 Refills, Maintenance, 07/15/20 9:49:00 EDT, Tablet Start Date: 07/15/20 Status: Ordered LORazepam 1 mg oral tablet 0 Refills, Maintenance, 07/15/20 9:49:00 EDT Start Date: 07/15/20 Status: Ordered Plavix 75 mg oral tablet 75 mg, 1, tablet, By Mouth, Daily, # 90 tablet, Refills 3, Tot. Refills 3, Maintenance, 07/15/20 15:06:00 EDT, Route to Pharmacy Electronically, [id number] Start Date: 07/15/20 Status: Ordered sertraline 100 mg oral tablet 1 tablet = 100 mg, By Mouth, Daily, # 30 tablet, 0 Refills, Maintenance, 07/15/20 9:49:00 EDT, Tablet Start Date: 07/15/20 Status: Ordered simvastatin 40 mg oral tablet TAKE 1 TABLET BY MOUTH EVERY DAY Start Date: 07/15/20 Status: Ordered Vital Signs Most recent to oldest [Reference Range]: 1 Weight 113.5 kg (07/15/20 9:48 AM) Oxygen Saturation [94-100 %] 96 % (07/15/20 9:48 AM) Pulse Rate [55-90 bpm] 108 bpm *H* (07/15/20 9:48 AM) Blood Pressure [90-138/55-84 mm Hg] 134/ 82mm Hg (07/15/20 9:48 AM) Blood pressure sites Arm, left (07/15/20 9:48 AM) Weight Obtained Via Patient/family state d (07/15/20 9:48 AM)
--- OUTSIDE RECORDS SUMMARY | 2023-12-04 06:36 | XMS_ITS | Continuity of Care Document ---
Author Name Unknown Organization [facility] Address [address] [place] [address]- Care Team Providers Care Erp Project Manager Name Role Phone Brijesh FOX, Ivonne Audrey Primary Care Physician Encounter [facility] [place] [place] Date(s): 08/03/20 - 08/05/[address] [address]- [facility] Discharge Disposition: A-D/C Home Attending Physician: Nilson Jones MD Admitting Physician: [...] 08/05/20 11:42:00 EDT, Route to Pharmacy Electronically, [facility], 170, cm, 08/05/20 8:25:00 EDT, Height, 117, kg, 08/03/20 21:09:00 EDT, Dry Weight Start Date: 08/05/20 Status: Ordered Azithromycin 5 Day Dose Pack 250 mg oral tablet 1 pack/packet, By Mouth, Once, # 6 tablet, 0 Refills, Soft Stop, 08/05/20 11:40:00 EDT, Tablet, [facility], 170, cm, 08/05/20 8:25:00 [...] 08/10/20 13:38:00 EDT, 08/05/20 13:38:00 EDT, Tablet, [facility], Partial fill upon patient request, 170, cm, 08/05/20 8:25:00 EDT,... Start Date: 08/05/20 Stop Date: 08/10/20 Status: Ordered docusate sodium 100 mg oral capsule 100 mg, 1, capsule, By Mouth, 2 times a day, # 20 capsule, Refills 0, Tot. Refills 0, Maintenance, 08/05/20 13:38:00 EDT, Route to Pharmacy Electronically, [facility], 170, cm, :25:00 EDT, Height, 117, kg, 08/03/20 21:09:00 EDT... Start Date: 08/05/20 Stop Date: 08/15/20 Status: Ordered gabapentin 300 mg oral capsule 300 mg, 1, capsule, By Mouth, 3 times a day, # 90 capsule, Refills 2, Tot. Refills 2, Maintenance, 08/05/20 13:38:00 EDT, Route to Pharmacy Electronically, [facility], 170, cm, 208:25:00 EDT, Height, 117, kg, 08/03/20 21:09:00 EDT... [...] veins of leg(Confirmed) Active Venous stasis(Confirmed) Active Procedures Procedure Date Related Diagnosis Body Site Status Right Carotid endarterectomy w/EEG 08/03/20 Completed Tonsillectomy Completed Vital Signs Most recent to oldest [Reference Range]: 1 2 3 4 Height 170 cm (08/05/20 8:25 AM) 170 cm (08/05/20 4:02 AM) 170 cm (08/04/20 11:29 PM) Weight 117 kg (08/03/20 9:05 PM) Oxygen Saturation [94-100 %] 99 % (08/05/20 8:25 AM) 96 % (08/05/20 4:02 AM) 96 % (08/04/20 11:29 PM) Pulse Rate [55-90 bpm] 74 bpm (08/05/20 8:25 AM) 74 bpm (08/05/20 4:02 AM) 74 bpm (08/04/20 11:29 PM) Body Mass Index [18.5-24.99] 40.48 *>HHI* (08/03/20 9:05 PM) Blood Pressure [90-138/55-84 mm Hg] 146/79mm Hg *H* (08/05/20 10:26 AM) 146/79mm Hg *H* (08/05/20 8:25 AM) 141/64mm Hg *H* (08/05/20 4:02 AM) Respiratory Rate [16-30 br/min] 18 br/min (08/05/20 11:28 AM) 18 br/min (08/05/20 11:27 AM) 18 br/min (08/05/20 11:25 AM) Temperature [96.8-100.4 DegF] 98.1 DegF (08/05/20 8:25 AM) 98.2 DegF (08/05/20 4:02 AM) 98.7 DegF (08/04/20 11:29 PM) Liters per Minute 2 L/min (08/04/20 2:18 AM) 2 L/min (08/03/20 10:29 PM) 2 L/min (08/03/20 8:22 PM) Mode of Delivery (Oxygen) Room air (08/05/20 8:25 AM) Room air (08/05/20 4:02 AM) Room air (08/04/20 8:21 PM) Room air (08/04/20 8:21 PM) Blood pressure sites Arm, left (08/05/20 8:25 AM) Arm, left (08/05/20 4:02 AM) Arm, left (08/04/20 8:21 PM) Temperature Route Oral (08/05/20 8:25 AM) Oral (08/05/20 4:02 AM) Oral (08/04/20 11:29 PM) Dry Weight 117 kg (08/03/20 9:05 PM) 117.3 kg (07/29/20 11:12 AM) Dry Weight Obtained Via Standing scale (07/29/20 11:12 AM)
--- OUTSIDE RECORDS SUMMARY | 2023-12-04 06:36 | XMS_ITS | Continuity of Care Document ---
Author Name Unknown Organization [facility] Address [address] [place] [address]- Care Team Providers Care Tuft Machine Operator Name Role Phone Ivonne Coley NP Primary Care Physician Encounter [facility] [place] Date(s): 07/20/20 - 08/19/20 [facility] [address] [place] [address]- [facility] Allergies, Adverse Reactions, Alerts Substance Reaction Severity [...] 08/05/20 11:42:00 EDT, Route to Pharmacy Electronically, [facility], 170, cm, 08/05/20 8:25:00 EDT, Height, 117, kg, 08/03/20 21:09:00 EDT, Dry Weight Start Date: 08/05/20 Status: Ordered Azithromycin 5 Day Dose Pack 250 mg oral tablet 1 pack/packet, By Mouth, Once, # 6 tablet, 0 Refills, Soft Stop, 08/05/20 11:40:00 EDT, Tablet, [facility], 170, cm, 08/05/20 8:25:00 [...] 08/05/20 13:38:00 EDT, Route to Pharmacy Electronically, [facility], 170, cm, :25:00 EDT, Height, 117, kg, 08/03/20 21:09:00 EDT... Start Date: 08/05/20 Stop Date: 08/15/20 Status: Ordered gabapentin 300 mg oral capsule 300 mg, 1, capsule, By Mouth, 3 times a day, # 90 capsule, Refills 2, Tot. Refills 2, Maintenance, 08/05/20 13:38:00 EDT, Route to Pharmacy Electronically, [facility], 170, cm, :25:00 EDT, [...]
--- OUTSIDE RECORDS SUMMARY | 2023-12-04 06:36 | XMS_ITS | Continuity of Care Document ---
Author Name Unknown Organization [facility] Address [address] [place] [address]- Care Team Providers Care Telephone Technician Name Role Phone Ivonne Coley NP Primary Care Physician Encounter [facility] [place] Date(s): 08/05/20 - 09/04/[address] [address]- [facility] Attending Physician: Not on Staff, Attending MD Admitting Physician: Not on Staff, Admitting MD Referring Physician: Not on Staff, Referring MD Allergies, Adverse Reactions, Alerts Substance Reaction [...] 11:42:00 EDT, Route to Pharmacy Electronically, [facility], 170, cm, 08/05/20 8:25:00 EDT, Height, 117, kg, 08/03/20 21:09:00 EDT, Dry Weight Start Date: 08/05/20 Status: Ordered Azithromycin 5 Day Dose Pack 250 mg oral tablet 1 pack/packet, By Mouth, Once, # 6 tablet, 0 Refills, Soft Stop, 08/05/20 11:40:00 EDT, Tablet, [facility], 170, cm, 08/05/20 8:25:00 EDT, [...] 13:38:00 EDT, Route to Pharmacy Electronically, [facility], 170, cm, :25:00 EDT, Height, 117, kg, 08/03/20 21:09:00 EDT... Start Date: 08/05/20 Stop Date: 08/15/20 Status: Ordered gabapentin 300 mg oral capsule 300 mg, 1, capsule, By Mouth, 3 times a day, # 90 capsule, Refills 2, Tot. Refills 2, Maintenance, 08/05/20 13:38:00 EDT, Route to Pharmacy Electronically, [facility], 170, cm, :25:00 EDT, Height, [...]
--- OUTSIDE RECORDS SUMMARY | 2023-12-04 06:36 | XMS_ITS | Continuity of Care Document ---
Author Name Unknown Organization [facility] Address [address] [place] [address]- Care Team Providers Care Machine Load Clerk Name Role Phone Ivonne Coley NP Primary Care Physician [phone] Encounter [facility] Date(s): 08/09/20 - 09/08/20 [facility] [address] [place] [address]- [facility] Allergies, Adverse Reactions, Alerts Substance Reaction Severity [...] 08/05/20 11:42:00 EDT, Route to Pharmacy Electronically, [facility], 170, cm, 08/05/20 8:25:00 EDT, Height, 117, kg, 08/03/20 21:09:00 EDT, Dry Weight Start Date: 08/05/20 Status: Ordered Azithromycin 5 Day Dose Pack 250 mg oral tablet 1 pack/packet, By Mouth, Once, # 6 tablet, 0 Refills, Soft Stop, 08/05/20 11:40:00 EDT, Tablet, [facility], 170, cm, 08/05/20 8:25:00 [...] 08/05/20 13:38:00 EDT, Route to Pharmacy Electronically, [facility], 170, cm, :25:00 EDT, Height, 117, kg, 08/03/20 21:09:00 EDT... Start Date: 08/05/20 Stop Date: 08/15/20 Status: Ordered gabapentin 300 mg oral capsule 300 mg, 1, capsule, By Mouth, 3 times a day, # 90 capsule, Refills 2, Tot. Refills 2, Maintenance, 08/05/20 13:38:00 EDT, Route to Pharmacy Electronically, [facility], 170, cm, :25:00 EDT, [...]
--- OUTSIDE RECORDS SUMMARY | 2023-12-04 06:36 | XMS_ITS | Continuity of Care Document ---
Author Name Unknown Organization [facility] Address [address] [place] [address]- Care Team Providers Care Regulatory Affairs Internship Name Role Phone Brijesh FOX, Ivonne Ventura Primary Care Physician Encounter 08/09/20 - 09/03/20 [facility] [address] [place] [address]- [facility] Discharge Disposition: [facility] Allergies, Adverse Reactions, Alerts Substance Reaction Severity [...] 08/05/20 11:42:00 EDT, Route to Pharmacy Electronically, [facility], 170, cm, 08/05/20 8:25:00 EDT, Height, 117, kg, 08/03/20 21:09:00 EDT, Dry Weight Start Date: 08/05/20 Status: Ordered Azithromycin 5 Day Dose Pack 250 mg oral tablet 1 pack/packet, By Mouth, Once, # 6 tablet, 0 Refills, Soft Stop, 08/05/20 11:40:00 EDT, Tablet, [facility], 170, cm, 08/05/20 8:25:00 EDT, [...] 08/05/20 13:38:00 EDT, Route to Pharmacy Electronically, [facility], 170, cm, :25:00 EDT, Height, 117, kg, 08/03/20 21:09:00 EDT... Start Date: 08/05/20 Stop Date: 08/15/20 Status: Ordered gabapentin 300 mg oral capsule 300 mg, 1, capsule, By Mouth, 3 times a day, # 90 capsule, Refills 2, Tot. Refills 2, Maintenance, 08/05/20 13:38:00 EDT, Route to Pharmacy Electronically, [facility], 170, cm, :25:00 EDT, Height, [...]
--- OUTSIDE RECORDS SUMMARY | 2023-12-04 06:36 | XMS_ITS | Continuity of Care Document ---
Author Name Unknown Organization [facility] Address [address] [place] [address]- Care Team Providers Care Pediatric Medical Assistant Name Role Phone Brijesh FOX, Ivonne Audrey Primary Care Physician Encounter [facility] [place] Date(s): 07/07/20 - 09/17/20 [facility] [address] [place], [place] [address] Attending Physician: Natasha BORJAS, Praveen Arevalo Admitting Physician: Natasha BORJAS, Praveen Arevalo Referring Physician: Nakul Frankel MD Allergies, Adverse Reactions, Alerts Substance Reaction [...] 08/05/20 11:42:00 EDT, Route to Pharmacy Electronically, [facility], 170, cm, 08/05/20 8:25:00 EDT, Height, 117, kg, 08/03/20 21:09:00 EDT, Dry Weight Start Date: 08/05/20 Status: Ordered Azithromycin 5 Day Dose Pack 250 mg oral tablet 1 pack/packet, By Mouth, Once, # 6 tablet, 0 Refills, Soft Stop, 08/05/20 11:40:00 EDT, Tablet, [facility], 170, cm, 08/05/20 8:25:00 EDT, [...] 08/05/20 13:38:00 EDT, Route to Pharmacy Electronically, [facility], 170, cm, :25:00 EDT, Height, 117, kg, 08/03/20 21:09:00 EDT... Start Date: 08/05/20 Stop Date: 08/15/20 Status: Ordered gabapentin 300 mg oral capsule 300 mg, 1, capsule, By Mouth, 3 times a day, # 90 capsule, Refills 2, Tot. Refills 2, Maintenance, 08/05/20 13:38:00 EDT, Route to Pharmacy Electronically, [facility], 170, cm, :25:00 EDT, Height, [...] Refills, Soft Stop, 08/17/20 10:48:00 EDT, Tablet, [facility]/pharm[facility] #[id number], 170, cm, 08/05/20 8:25:00 EDT, Height, [...]
--- OUTSIDE RECORDS SUMMARY | 2023-12-04 06:36 | XMS_ITS | Continuity of Care Document ---
Author Name Unknown Organization [facility] Address [address] [place] [phone]- Care Team Providers Care Liquid Floor And Wall Applier Name Role Phone Brijesh FOX, Ivonne Ventura Primary Care Physician [phone] Encounter [facility] [place] Date(s): 11/21/21 - 12/21/21 [facility] [address] [place], [place] [address] Attending Physician: Nati Yun Admitting Physician: AdmtrNati Referring Physician: Admtr, Ar8 Allergies, Adverse Reactions, [...] Refills, Soft Stop, 08/17/20 10:48:00 EDT, Tablet, [facility]/pharmacy #[id number], 170, cm, 08/05/20 8:25:00 EDT, Height, [...]
--- OUTSIDE RECORDS SUMMARY | 2023-12-04 06:36 | XMS_ITS | Continuity of Care Document ---
Author Name Unknown Organization [facility] Address [address] [place] [address]- Care Team Providers Care Spragger Name Role Phone Ivonne Coley NP Primary Care Physician En[place] [facility] [place] Date(s): 08/18/20 - 10/21/20 [facility] [address] [place] [address] Attending Physician: Lisbeth FOX, Scarlet Falcon Admitting Physician: Lisbeth FOX, Scarlet Falcon Referring Physician: Ivonne Coley NP Allergies, Adverse [...] 08/05/20 11:42:00 EDT, Route to Pharmacy Electronically, [facility], 170, cm, 08/05/20 8:25:00 EDT, Height, 117, kg, 08/03/20 21:09:00 EDT, Dry Weight Start Date: 08/05/20 Status: Ordered Azithromycin 5 Day Dose Pack 250 mg oral tablet 1 pack/packet, By Mouth, Once, # 6 tablet, 0 Refills, Soft Stop, 08/05/20 11:40:00 EDT, Tablet, [facility], 170, cm, 08/05/20 [...] 08/05/20 13:38:00 EDT, Route to Pharmacy Electronically, [facility], 170, cm, :25:00 EDT, Height, 117, kg, 08/03/20 21:09:00 EDT... Start Date: 08/05/20 Stop Date: 08/15/20 Status: Ordered gabapentin 300 mg oral capsule 300 mg, 1, capsule, By Mouth, 3 times a day, # 90 capsule, Refills 2, Tot. Refills 2, Maintenance, 08/05/20 13:38:00 EDT, Route to Pharmacy Electronically, [facility], 170, cm, :25:00 [...] Refills, Soft Stop, 08/17/20 10:48:00 EDT, Tablet, [facility]/pharmacy #[id number], 170, cm, 08/05/20 8:25:00 EDT, [...]
--- OUTSIDE RECORDS SUMMARY | 2023-12-04 06:36 | XMS_ITS | Continuity of Care Document ---
Author Name Unknown Organization [facility] Address [address] [place] [id number]- Care Team Providers Care Knotting Machine Operator Name Role Phone Brijesh FOX, Ivonne Ventura Primary Care Physician [phone] [place]counter [facility] [place] Date(s): 12/14/21 - 01/13/22 [facility] [address] [place], [place] [address] Attending Physician: Nati Yun Admitting Physician: AdmtrNati Referring Physician: Admtr ArChuy Allergies, Adverse Reactions, Alerts Substance Reaction Severity [...] 08/05/20 11:42:00 EDT, Route to Pharmacy Electronically, [facility], 170, cm, 08/05/20 8:25:00 EDT, Height, 117, kg, 08/03/20 21:09:00 EDT, Dry Weight Start Date: 08/05/20 Status: Ordered Azithromycin 5 Day Dose Pack 250 mg oral tablet 1 pack/packet, By Mouth, Once, # 6 tablet, 0 Refills, Soft Stop, 08/05/20 11:40:00 EDT, Tablet, [facility], 170, cm, 08/05/20 8:25:00 [...] 08/05/20 13:38:00 EDT, Route to Pharmacy Electronically, [facility], 170, cm, :25:00 EDT, Height, 117, kg, 08/03/20 21:09:00 EDT... Start Date: 08/05/20 Stop Date: 08/15/20 Status: Ordered gabapentin 300 mg oral capsule 300 mg, 1, capsule, By Mouth, 3 times a day, # 90 capsule, Refills 2, Tot. Refills 2, Maintenance, 08/05/20 13:38:00 EDT, Route to Pharmacy Electronically, [facility], 170, cm, :25:00 EDT, [...] Refills, Soft Stop, 08/17/20 10:48:00 EDT, Tablet, [facility] #[id number], 170, cm, 08/05/20 8:25:00 [...]
--- OUTSIDE RECORDS SUMMARY | 2023-12-04 06:36 | XMS_ITS | Continuity of Care Document ---
Author Name Unknown Organization [facility] Address [address] [place] [id number]- Care Team Providers Care Special Events Manager Name Role Phone Brijesh FOX, Ivonne Ventura Primary Care Physician [phone] Encounter [facility] [place] Date(s): 09/15/21 - 01/13/22 [facility] [address] [place], [place] [address] Attending Physician: Lisbeth FOX, Scarlet Falcon Admitting Physician: Lisbeth FOX, Scarlet Falcon Allergies, Adverse Reactions, Alerts Substance Reaction Severity [...] 08/05/20 11:42:00 EDT, Route to Pharmacy Electronically, [facility], 170, cm, 08/05/20 8:25:00 EDT, Height, 117, kg, 08/03/20 21:09:00 EDT, Dry Weight Start Date: 08/05/20 Status: Ordered Azithromycin 5 Day Dose Pack 250 mg oral tablet 1 pack/packet, By Mouth, Once, # 6 tablet, 0 Refills, Soft Stop, 08/05/20 11:40:00 EDT, Tablet, [facility], 170, cm, 08/05/20 8:25:00 [...] 08/05/20 13:38:00 EDT, Route to Pharmacy Electronically, [facility], 170, cm, :25:00 EDT, Height, 117, kg, 08/03/20 21:09:00 EDT... Start Date: 08/05/20 Stop Date: 08/15/20 Status: Ordered gabapentin 300 mg oral capsule 300 mg, 1, capsule, By Mouth, 3 times a day, # 90 capsule, Refills 2, Tot. Refills 2, Maintenance, 08/05/20 13:38:00 EDT, Route to Pharmacy Electronically, [facility], 170, cm, :25:00 EDT, [...] Refills, Soft Stop, 08/17/20 10:48:00 EDT, Tablet, [facility]acy #[id number], 170, cm, 08/05/20 8:25:00 EDT, Height, [...]
--- OUTSIDE RECORDS SUMMARY | 2023-12-04 06:36 | XMS_ITS | Continuity of Care Document ---
Author Name Unknown Organization [facility] Address [address] [place] [id number]- Care Team Providers Care Senior Accounting Manager Name Role Phone Ivonne Coley NP Primary Care Physician Encounter [facility] [place] Date(s): 08/13/20 - 09/12/20 [facility] [address] [place] [id number] [facility] Allergies, Adverse Reactions, Alerts Substance Reaction [...] 08/05/20 11:42:00 EDT, Route to Pharmacy Electronically, [facility], 170, cm, 08/05/20 8:25:00 EDT, Height, 117, kg, 08/03/20 21:09:00 EDT, Dry Weight Start Date: 08/05/20 Status: Ordered Azithromycin 5 Day Dose Pack 250 mg oral tablet 1 pack/packet, By Mouth, Once, # 6 tablet, 0 Refills, Soft Stop, 08/05/20 11:40:00 EDT, Tablet, [facility], 170, cm, 08/05/20 8:25:00 [...] 08/05/20 13:38:00 EDT, Route to Pharmacy Electronically, [facility], 170, cm, :25:00 EDT, Height, 117, kg, 08/03/20 21:09:00 EDT... Start Date: 08/05/20 Stop Date: 08/15/20 Status: Ordered gabapentin 300 mg oral capsule 300 mg, 1, capsule, By Mouth, 3 times a day, # 90 capsule, Refills 2, Tot. Refills 2, Maintenance, 08/05/20 13:38:00 EDT, Route to Pharmacy Electronically, [facility], 170, cm, :25:00 EDT, [...]
--- OUTSIDE RECORDS SUMMARY | 2023-12-04 06:36 | XMS_ITS | Continuity of Care Document ---
Author Name Unknown Organization [facility] Address [address] [place] [id number]- Care Team Providers Care Supervisor Multifocal Lens Name Role Phone Brijesh FOX, Ivonne Ventura Primary Care Physician [place] [facility] [place] Date(s): 07/25/20 - 08/26/[address] [address] [facility] Attending Physician: Nilson Jones MD Allergies, Adverse Reactions, [...] 08/05/20 11:42:00 EDT, Route to Pharmacy Electronically, [facility], 170, cm, 08/05/20 8:25:00 EDT, Height, 117, kg, 08/03/20 21:09:00 EDT, Dry Weight Start Date: 08/05/20 Status: Ordered Azithromycin 5 Day Dose Pack 250 mg oral tablet 1 pack/packet, By Mouth, Once, # 6 tablet, 0 Refills, Soft Stop, 08/05/20 11:40:00 EDT, Tablet, [facility], 170, cm, 08/05/20 8:25:00 [...] 08/05/20 13:38:00 EDT, Route to Pharmacy Electronically, [facility], 170, cm, :25:00 EDT, Height, 117, kg, 08/03/20 21:09:00 EDT... Start Date: 08/05/20 Stop Date: 08/15/20 Status: Ordered gabapentin 300 mg oral capsule 300 mg, 1, capsule, By Mouth, 3 times a day, # 90 capsule, Refills 2, Tot. Refills 2, Maintenance, 08/05/20 13:38:00 EDT, Route to Pharmacy Electronically, [facility], 170, cm, :25:00 EDT, [...]
--- OUTSIDE RECORDS SUMMARY | 2023-12-04 06:36 | XMS_ITS | Continuity of Care Document ---
Author Name Unknown Organization [facility] Address [address] [place] [id number]- Care Team Providers Care Commodity Merchant Name Role Phone Brijesh FOX, Ivonne Ventura Primary Care Physician Encounter [facility] Date(s): 08/06/20 - 09/05/20 [facility] [address] [place] [id number]- [facility] Allergies, Adverse Reactions, Alerts [...] 08/05/20 11:42:00 EDT, Route to Pharmacy Electronically, [facility], 170, cm, 08/05/20 8:25:00 EDT, Height, 117, kg, 08/03/20 21:09:00 EDT, Dry Weight Start Date: 08/05/20 Status: Ordered Azithromycin 5 Day Dose Pack 250 mg oral tablet 1 pack/packet, By Mouth, Once, # 6 tablet, 0 Refills, Soft Stop, 08/05/20 11:40:00 EDT, Tablet, [facility], 170, cm, 08/05/20 8:25:00 [...] 08/05/20 13:38:00 EDT, Route to Pharmacy Electronically, [facility], 170, cm, :25:00 EDT, Height, 117, kg, 08/03/20 21:09:00 EDT... Start Date: 08/05/20 Stop Date: 08/15/20 Status: Ordered gabapentin 300 mg oral capsule 300 mg, 1, capsule, By Mouth, 3 times a day, # 90 capsule, Refills 2, Tot. Refills 2, Maintenance, 08/05/20 13:38:00 EDT, Route to Pharmacy Electronically, [facility], 170, cm, :25:00 EDT, [...]
--- NOTE | 2023-12-04 06:37 | ED_ITS ---
HPI - General Adult General Chief complaint: Extremity Injury, Lower Stated complaint: Fall/L Knee pain Time Seen by Provider: 12/04/23 06:28 Source: patient Mode of arrival: ambulatory Limitations: no limitations History of Present Illness HPI narrative: 63 year-old assigned male at with a history of asthma presents to emergency department after a fall last night 12/04/2023 at 12 a.m. on his left knee. He denies hitting his head. He fell from his second step. He states his left leg was under his body when he fell backward directly onto his left knee. He reports he was able to get up after a minute. He states he spent the rest of the night using ice on and off until this morning. He states his pain has worsened over time and he wants to make sure that he did not break anything. He reports the pain is worse with walking. He states he has taken no medication for his pain at this time. He states that rest has given some relief for his pain. The patient denies fever, night sweats, weight loss, vision changes, blurry vision, double vision, loss of vision, lightheadedness, headache, chest pain, palpitations, shortness of breath, trouble breathing, abdominal pain, nausea, vomiting, diarrhea, melena and hematochezia, changes in bowel movements, burning with urination, urinary frequency, urinary retention, and changes with urination. Onset (ago): hour(s) (7) Location: lower extremity (left knee) Relieving factors: none Exacerbating factors: movement Associated symptoms: denies other symptoms Treatments prior to arrival: cold therapy Related Data Home Medications Medication Instructions Recorded Confirmed levothyroxine 100 mcg tablet 1 tab PO DAILY 12/02/21 12/02/21 lorazepam 1 mg tablet 1 mg PO DAILY 12/02/21 12/02/21 losartan 25 mg tablet 1 tab PO DAILY 12/02/21 12/02/21 sertraline 100 mg tablet 1 tab PO BID 12/02/21 12/02/21 simvastatin 40 mg tablet 1 tab PO BEDTIME 12/02/21 12/02/21 Previous Rx's Medication Instructions Recorded benzonatate 200 mg capsule 200 mg PO TID PRN cough #20 caps 04/29/22 codeine 10 mg-guaifenesin 100 mg/5 10 ml PO Q4-6H PRN cough #120 mL 04/29/22 mL oral liquid (Virtussin AC) doxycycline monohydrate 100 mg 100 mg PO BID #20 caps 04/29/22 capsule prednisone 20 mg tablet 40 mg (2 x 20 mg) PO DAILY #8 tabs 04/29/22 clindamycin HCl 300 mg capsule 300 mg PO Q6H 7 days #28 caps 06/28/22 oxycodone 5 mg tablet 5 mg PO Q6H PRN severe pain (scale 06/28/22 score 7-10) #9 tabs Allergies Allergy/AdvReac Type Severity Reaction Status Date / Time cephalexin [From Keflex] Allergy Severe Anaphylaxis Verified 12/04/23 05:35 almond [ALMONDS] Allergy Unknown UNKNOWN Verified 12/04/23 05:35 cat dander [CAT] Allergy Unknown UNKNOWN Verified 12/04/23 05:35 pecan nut [PECAN] Allergy Unknown UNKNOWN Verified 12/04/23 05:35 tree and shrub pollen [TREE] Allergy Unknown UNKNOWN Verified 12/04/23 05:35 walnut [WALNUT] Allergy Unknown UNKNOWN Verified 12/04/23 05:35 GRASS Allergy Unknown UNKNOWN Uncoded 07/29/20 14:54 Review of Systems 2 Constitutional: Constitutional: Reports no additional constitutional complaints, Denies chills, Denies fever(s) and Denies night sweats Eyes: Eyes: Reports no additional eye complaints, Denies blurry vision, Denies change in vision, Denies diplopia, Denies eye discharge, Denies loss of vision and Denies eye pain ENT: Denies dizziness Cardiovascular: Cardiovascular: Reports no additional cardiovascular complaints, Denies chest pain, Denies lightheadedness, Denies Loss of Consciousness and Denies dyspnea Respiratory: Respiratory: Reports no additional respiratory complaints and Denies dyspnea Gastrointestinal: Gastrointestinal: Reports no additional gastrointestinal complaints, Denies abdominal pain, Denies melena, Denies hematochezia, Denies change in bowel habits and Denies change in stool character Genitourinary: Genitourinary: Reports no additional male genitourinary complaints, Denies hematuria, Denies oliguria, Denies difficulty urinating, Denies dysuria, Denies urinary frequency, Denies urinary hesitancy, Denies urinary incontinence and Denies urinary urgency Musculoskeletal: Musculoskeletal: Reports arthralgias (left knee pain), Denies numbness and Denies tingling Neurologic: Denies dizziness, Denies loss of vision, Denies numbness and Denies tingling Psychiatric: Psychiatric: Reports no additional psychiatric complaints Endocrine: Endocrine: Reports no additional endocrine complaints Hematologic/Lymphatic: Hematologic/Lymphatic: Reports no additional hematologic/lymphatic complaints Allergic/Immunologic: Allergic/Immunologic: Reports no additional allergic/immunologic complaints [facility] Past Medical History Attestation statement: The following information was validated with the patient. Source: old records reviewed and nursing notes reviewed Medical History Carotid artery disease Hypertension Carotid artery disease Social History Social History Alcohol intake: never Patient Tobacco Use Status: Current everyday Tobacco user Smoked in Last 30 Days: Yes Use of substances other than those prescribed or required for medical reasons: No Advance Directives: No Advance Directives Information Provided: Yes Physical Exam ED Vital Signs: Vital Signs - 24 hr 12/04/23 05:33 12/04/23 06:58 Temperature 98.1 F 97.6 F Pulse Rate 88 88 Respiratory Rate 16 16 Blood Pressure 139/78 150/87 H Pulse Oximetry 96 95 Oxygen Delivery Method Room Air Room Air BMI result Body Mass Index 36.5 Const General: cooperative, no acute distress, alert and awake Nutritional Appearance: well nourished Orientation/consciousness: patient oriented x3 Limitations: no limitations HENMT Head: Yes normal to inspection and Yes atraumatic Ears: hearing grossly normal bilaterally and external ears normal General nose exam: Normal external nose present, no nasal discharge noted and no epistaxis Face and sinus: Yes normal facial exam, No abrasion and No laceration Mouth: Normal oral and palatal mucosa present, no drooling and no muffled voice Eyes General: appearance normal, both eyes and all related structures Periorbital: periorbital findings normal Eyelids: Yes eyelids normal Conjunctivae: conjunctivae normal Pupils: Equal, round and reactive pupils present EOM: EOMs intact bilaterally Neck Neck: Yes normal visual inspection, Yes full ROM and Yes no lymphadenopathy Chest Chest palpation & inspection: normal inspection of the chest Resp Effort & Inspection: normal respiratory effort and able to speak in complete sentences GI Inspection: Yes normal to inspection Neuro General: patient oriented x3 and moves all extremities Cranial nerves: Yes Equal, round and reactive pupils present Cognition (Neuro): normal cognition Motor exam (neuro): 5/5 motor strength present throughout Sensory Exam: Normal double simultaneous stimulation for sensation Coordination: [id number] test normal Extrem General: Yes normal to inspection, Yes full ROM and Yes capillary refill normal Elbow/forearm/wrist images: 2 1. left knee pain Left lower extremity: knee (left knee) Details: tenderness and normal ROM (pain with knee flexion) Psych Appearance: grossly normal Mental Status: mental status grossly normal Affect: normal affect Attitude: cooperative Thought process: Normal thought process present Thought content: Normal thought content present Insight: Good insight present (Psych) Procedures Orthopedic Splinting/Casting Injury #1: Side: left Lower Extremity Injury Location: knee Lower Extremity Immobilizer: Lee wrap Medical Decision Making Medical Decision Making MDM Narrative: Patient is a 63 year old assigned male at with a history of asthma presenting to the emergency department today with left knee pain. Patient's physical exam was unremarkable. Patient's left knee x-ray showed an effusion but was otherwise unremarkable. I explained my physical exam findings as well as all test results to the patient. I answered all questions asked by the patient. Patient's left knee was wrapped with an LEE Wrap, without incident. Patient's PMS was intact prior to and after LEE placement. I stressed the importance of the patient taking his medication as prescribed. I stressed the importance of the patient following up with his primary care provider and an orthopedic provider. I stressed the importance of the patient returning to the emergency department immediately if his symptoms were to worsen or if he were to develop any dizziness, shortness of breath, difficulty breathing, chest pain, blurry vision, loss of vision, nausea, vomiting, abdominal pain, fever, chills, back pain, or any other complaints. Patient verbalized agreement and understanding with this treatment plan and discharge. Differential Diagnosis Differential Diagnoses: The differential diagnosis associated with the presentation includes Joint effusion Knee pain Admission/Observation Consideration of admission/observation: Escalation of care including admission/observation considered Patient would have been admitted to the hospital had his work up had any findings where hospital admission was appropriate and his clinical presentation warranted hospital admission. Independent Interpretation I performed an independent interpretation of an: Plain X-Ray Interpretation: My interpretation is in agreement with the radiologist's impression of this imaging study. - EXAMINATION: XR KNEE, LEFT CLINICAL INFORMATION: Fall COMPARISON: None available. TECHNIQUE: Four views of the left knee. FINDINGS: Osseous alignment is anatomic. There is mild to moderate joint space narrowing along with osteophytosis. No acute fracture is seen. Moderate joint effusion noted. XR/XR knee LT 4V IMPRESSION: No fracture identified. Moderate joint effusion. Dictated By: Jose Pierre MD Signed By: Electronically signed by Jose Pierre MD 12/04/23 0632 Radiology Impression Discussion of test interpretation with radiology: I have reviewed the radiologist's reading. Discharge Plan Discharge Clinical Impression: Joint effusion, Knee pain Patient Disposition: Home, Self-Care Instructions: Knee Pain (ED) Additional Instructions: Follow up with your primary care provider and an orthopedic provider. Return to the emergency department immediately if your symptoms worsen or if you develop any dizziness, shortness of breath, difficulty breathing, chest pain, blurry vision, loss of vision, nausea, vomiting, abdominal pain, fever, chills, back pain, or any other complaints. Prescriptions: No Action doxycycline monohydrate 100 mg capsule 100 mg PO BID Qty: 20 0RF prednisone 20 mg tablet 40 mg PO DAILY Qty: 8 0RF benzonatate 200 mg capsule 200 mg PO TID PRN (Reason: cough) Qty: 20 0RF codeine-guaifenesin [Virtussin AC] 10-100 mg/5 mL liquid 10 ml PO Q4-6H PRN (Reason: cough) Qty: 120 0RF sertraline 100 mg tablet 1 tab PO BID simvastatin 40 mg tablet 1 tab PO BEDTIME levothyroxine 100 mcg tablet 1 tab PO DAILY losartan 25 mg tablet 1 tab PO DAILY lorazepam 1 mg tablet 1 mg PO DAILY clindamycin HCl 300 mg capsule 300 mg PO Q6H 7 Days Qty: 28 0RF oxycodone 5 mg tablet 5 mg PO Q6H PRN (Reason: severe pain (scale score 7-10)) Qty: 9 0RF Rx Instructions: Partial Fill upon patient request. Referrals: [facility] [place] [facility] Surgeons [Provider Group] (Call to establish and follow up with an orthopedic provider.) Ivonne Coley NP [Primary Care Provider] - Interventions: ED Discharge Assessment Last Done: 12/04/23 07:17 Discharge Date/Time: 12/04/23 07:17 Print Language: French
[2023-12-04 06:58] VITALS: BP 150/87; PULSE 88; RESP 16; TEMP 36.4; O2SAT 95
== END 2023-12-04 07:17 | disposition home or self-care (01) ==
PROVIDERS: Emergency Provider Emergency Medicine Emergency Medical Services; PCP Nurse Practitioner Adult Health
DX: M25.462 Effusion, left knee (principal); M25.562 Pain in left knee
CPT/HCPCS: 73564; 99283; 99284

== ENCOUNTER 2024-04-29 08:00 | Emergency (ER) | payer MEDICAID, SELFPAY ==
[2024-04-29 08:08] VITALS: PULSE 100; RESP 18; TEMP 36.9; O2SAT 97; BMI 38.9
--- NOTE | 2024-04-29 09:17 | ED_ITS ---
HPI - General Adult General Chief complaint: General Medical Stated complaint: Lump L thigh Time Seen by Provider: 04/29/24 09:02 Source: patient Mode of arrival: ambulatory Limitations: no limitations History of Present Illness ED Provider: Johnathan Crowder PA-C HPI narrative: 64-year-old male presents to the ER for evaluation of left upper thigh painful cyst/ abscess that has been getting worse for the last 5 days. Patient starts about 5 days ago the area started as a small pimple and it has gotten much bigger and more painful over the last few days. He has tried warm compresses with minimal relief. He had chills last evening in his worried about worsening infection. He reports this morning there are now 2 areas that are swollen and painful, both in the left upper thigh / groin area. He denies any redness or swelling to the scrotum. No testicular pain. He has not diabetic. MD complaint: Left upper thigh abscess Onset (ago): day(s) (5) Location: left and lower extremity Radiation: proximal Severity: moderate Severity scale (1-10): 6 Quality: aching Pain Consistency: constant Relieving factors: none Exacerbating factors: movement Associated symptoms: fever/chills Treatments prior to arrival: none Related Data Home Medications ?Medication ?Instructions ?Recorded ?Confirmed levothyroxine 100 mcg tablet 1 tab PO DAILY 12/02/21 12/02/21 lorazepam 1 mg tablet 1 mg PO DAILY 12/02/21 12/02/21 losartan 25 mg tablet 1 tab PO DAILY 12/02/21 12/02/21 sertraline 100 mg tablet 1 tab PO BID 12/02/21 12/02/21 simvastatin 40 mg tablet 1 tab PO BEDTIME 12/02/21 12/02/21 Previous Rx's ?Medication ?Instructions ?Recorded benzonatate 200 mg capsule 200 mg PO TID PRN cough #20 caps 04/29/22 codeine 10 mg-guaifenesin 100 mg/5 10 ml PO Q4-6H PRN cough #120 mL 04/29/22 mL oral liquid (Virtussin AC) doxycycline monohydrate 100 mg 100 mg PO BID #20 caps 04/29/22 capsule prednisone 20 mg tablet 40 mg (2 x 20 mg) PO DAILY #8 tabs 04/29/22 clindamycin HCl 300 mg capsule 300 mg PO Q6H 7 days #28 caps 06/28/22 oxycodone 5 mg tablet 5 mg PO Q6H PRN severe pain (scale 06/28/22 score 7-10) #9 tabs sulfamethoxazole 800 1 tab PO BID #7 tabs 04/29/24 mg-trimethoprim 160 mg tablet (Bactrim DS) clindamycin HCl 150 mg capsule 450 mg (3 x 150 mg) PO Q8H 7 days 04/30/24 #63 caps Allergies Allergy/AdvReac Type Severity Reaction Status Date / Time cephalexin [From Keflex] Allergy Severe Anaphylaxis Verified 04/29/24 08:11 almond [ALMONDS] Allergy Unknown UNKNOWN Verified 04/29/24 08:11 cat dander [CAT] Allergy Unknown UNKNOWN Verified 04/29/24 08:11 pecan nut [PECAN] Allergy Unknown UNKNOWN Verified 04/29/24 08:11 tree and shrub pollen [TREE] Allergy Unknown UNKNOWN Verified 04/29/24 08:11 walnut [WALNUT] Allergy Unknown UNKNOWN Verified 04/29/24 08:11 doxycycline Allergy Rash Verified 04/29/24 08:11 GRASS Allergy Unknown UNKNOWN Uncoded 07/29/20 14:54 Review of Systems 2 Review of Systems: Yes all other systems are reviewed and are negative [facility] Past Medical History Medical History Carotid artery disease Hypertension Carotid artery disease Social History Social History Alcohol intake: never Patient Tobacco Use Status: Current everyday Tobacco user Advance Directives: No Advance Directives Information Provided: No Physical Exam ED Vital Signs: Vital Signs - 24 hr 04/29/24 11:06 04/29/24 11:37 Temperature 98.4 F 98.4 F Pulse Rate 83 83 Respiratory Rate 14 14 Blood Pressure 141/84 H 141/84 H Pulse Oximetry 97 97 Oxygen Delivery Method Room Air Room Air BMI result Body Mass Index 38.9 Appearance: Alert. Oriented X3. No acute distress. Head: normocephalic, atraumatic. Eyes: Pupils equal, round and reactive to light. ENT: Pharynx normal. No tonsillar swelling or exudate. Neck: Normal inspection. Neck supple. CVS: Normal heart rate and rhythm. Pulses normal. Respiratory: No respiratory distress. Breath sounds normal. Abdomen: Soft and nontender. +BS x4 Skin: Skin warm and dry. Normal skin color. Normal skin turgor. No rashes. : Normal external inspection. No scrotal swelling, tenderness, erythema. Extremities: No lower extremity edema. No joint swelling. left upper inner thigh with a moderate-size, at least 10 cm area of erythema and warmth, mild induration with a central, proximally 1 cm necrotic area with eschar on the medial left upper thigh. There is a 2nd area of erythema and blackened eschar with purulent on the left gluteus, smaller with approximately 6 cm of surrounding erythema and warmth, mild induration Neuro/psych: Oriented X 3. No motor deficit. No sensory deficit. CN II-XII intact. Normal speech and cognition. Course Course Course Narrative: 04/30/24--patient called stating he developed suspected allergic reaction to Bactrim, states he has known allergy to Bactrim in the past however has not taken for many years and could not remember his reaction, this was discussed yesterday and they agreed he would like to try Bactrim again, however due to quick reaction with burning rash patient requesting medication to be changed. Discussed with patient I would discontinue Bactrim and start him on Clindamycin to cover MRSA. States he is never taken Clindamycin before. Discussed worrisome signs and symptoms and strict return precautions. Discussed if he develops any sloughing, skin peeling, fever, or persistent/spreading rash to return to the ED immediately Medications Administered Discontinued Medications Generic Name Dose Route Start Last Admin Trade Name Reuben PRN Reason Stop Dose Admin Lidocaine HCl 5 ml 04/29/24 09:17 04/29/24 09:54 Lidocaine Hcl 1 % Mpf 5 Ml Vial SUBCUT 04/29/24 09:18 5 ml ONCE ONE Administration Trimethoprim/Sulfamethoxazole 1 tab 04/29/24 10:51 04/29/24 11:34 Sulfamethox/Trimeth 800/160 Tablet PO 04/29/24 10:52 1 tab ONCE ONE Administration Procedures Abscess I/D Site: lower extremity Side (if applicable): left Local Anesthetic: lidocaine 1% Amount of anesthesia used (mL): 1 Technique: incised with blade Sent for culture/gram staining?: Yes Irrigation: Yes Packing used?: iodoform Complications: bleeding Medical Decision Making Medical Decision Making MDM Narrative: 64 yo male with history of hypertension presenting to the ER for evaluation of left upper thigh and left buttock abscesses. On examination he has 2 areas of cellulitis with central fluctuance, they were draped and prepped, incised with an 11 blade. small amount of bloody purulent material was expressed. Area was marked with a skin marker. Basic lab workup shows a leukocytosis of 13.4. Elevated inflammatory markers. He is not febrile or tachycardic. No evidence of sepsis at this time. No evidence of Michael gangrene that seems to be limited to his thigh and buttock. No rectal involvement. He has allergies to cephalexin and doxycycline. Patient was prescribed Bactrim DS for broad coverage including MRSA. Culture sent. His potassium today is 4.9. He has normal renal function. He was counseled on possibility of hyperkalemia, importance of staying hydrated. He will abstain from taking his arm, he states he has not been taking it and has been noncompliant with it. Blood pressure today was mildly elevated. At this time patient counseled on close monitoring of his wounds and the marked erythema. He was encouraged come back to the ER in 48 hours for a wound check. He does have packing in place and 1 of the abscesses. Stable for discharge with close outpatient follow-up Differential Diagnosis Differential Diagnoses: The differential diagnosis associated with the presentation includes abscess, cellulitis, Fourner's gangrene, folliculitis Lab Data [facility] Lab Attestation statement: I reviewed the patient's lab results. leukocytosis with inflammatory marker elevation 04/29/24 10:07 04/29/24 10:06 Labs: Lab Results 04/29/24 04/29/24 Range/Units 10:06 10:07 WBC 13.4 H (4.8-10.8) X10*3/uL RBC 5.21 (4.60-5.80) X10*6/uL Hgb 15.0 (14.0-18.0) g/dl Hct 44.7 (42.0-52.0) % MCV 85.8 (80.0-98.0) fL MCH 28.8 (27.0-33.0) pg MCHC 33.6 (31.0-36.0) g/dl RDW 13.8 (11.0-16.0) % Plt Count 232 (160-400) X10*3/uL MPV 10.2 (9.4-12.4) fL Immature Gran % (Auto) 0.7 H (0.0-0.4) % Neut % (Auto) 74.3 H (45-73) % Lymph % (Auto) 10.5 L (20-40) % Whitfield % (Auto) 11.4 H (2-11) % Eos % (Auto) 2.6 (0-4) % Baso % (Auto) 0.5 (0-2) % Lymph # (Auto) 1.4 (1.2-4.9) X10*3/uL Whitfield # (Auto) 1.5 H (0.1-1.2) X10*3/uL Eos # (Auto) 0.4 (0.0-0.4) X10*3/uL Baso # (Auto) 0.1 (0.0-0.2) X10*3/uL Abs Immat Gran (auto) 0.10 H (0.00-0.03) X10*3/uL Absolute Neuts (auto) 9.9 H (2.0-8.3) x10*3/uL Absolute Nucleated RBC 0.000 (0.0-0.012) X10*3/uL Nucleated RBC % (auto) 0.0 (0.0-0.2) /100WBC Smear Tech's Comments VERIFIED ESR 40 H (0-15) MM/HR Sodium 140 (135-145) mmol/L Potassium 4.9 (3.3-5.1) mmol/L Chloride 101 (96-108) mmol/L Carbon Dioxide 29 (22-29) mmol/L Anion Gap 15 (12-20) BUN 15 (9-16) mg/dL Creatinine 0.89 (0.5-1.4) mg/dL Estim Creat Clear Calc 106.4 Estimated GFR > 60 Random Glucose 101 (60-115) mg/dL Calcium 9.5 (8.4-10.2) mg/dL C-Reactive Protein 11.53 H (< or = 0.50) mg/dL Tests considered The following testing was considered but not selected: considered CT scan of the abdomen and pelvis with contrast however low clinical suspicion for perirectal abscess or Michael gangrene Prescription Management I considered prescription management with: Pain Medication and Antibiotic Chronic Conditions Patient?s care impacted by: Hypertension Critical Care Time Critical Care Time Critical Care Time: No Discharge Plan Discharge Clinical Impression: Cellulitis and abscess of left leg Patient Disposition: Home, Self-Care Instructions: Cellulitis (DC), Abscess Incision and Drainage (DC) Additional Instructions: Take the prescribed antibiotics as directed, complete the entire course and do not miss any doses Your next dose is due tonight before bed. Do not take your blood pressure medication while your on this antibiotic. Rest and drink plenty of fluids. Continue to use warm compresses to the area. Recommend coming back in 2 days for wound evaluation. If you feel that the wound is getting significantly better with warm compresses and antibiotics, you do not need to come. Follow-up with your primary care doctor If you develop new or worsening symptoms call 911 or come back to the ER for further evaluation. Prescriptions: New sulfamethoxazole-trimethoprim [Bactrim DS] 800-160 mg tablet 1 tab PO BID Qty: 7 0RF Rx Instructions: give 3 days/wk (alternating days) clindamycin HCl 150 mg capsule 450 mg PO Q8H 7 Days Qty: 63 0RF No Action doxycycline monohydrate 100 mg capsule 100 mg PO BID Qty: 20 0RF prednisone 20 mg tablet 40 mg PO DAILY Qty: 8 0RF benzonatate 200 mg capsule 200 mg PO TID PRN (Reason: cough) Qty: 20 0RF codeine-guaifenesin [Virtussin AC] 10-100 mg/5 mL liquid 10 ml PO Q4-6H PRN (Reason: cough) Qty: 120 0RF sertraline 100 mg tablet 1 tab PO BID simvastatin 40 mg tablet 1 tab PO BEDTIME levothyroxine 100 mcg tablet 1 tab PO DAILY losartan 25 mg tablet 1 tab PO DAILY lorazepam 1 mg tablet 1 mg PO DAILY clindamycin HCl 300 mg capsule 300 mg PO Q6H 7 Days Qty: 28 0RF oxycodone 5 mg tablet 5 mg PO Q6H PRN (Reason: severe pain (scale score 7-10)) Qty: 9 0RF Rx Instructions: Partial Fill upon patient request. Referrals: Ivonne Coley NP [Primary Care Provider] - Interventions: ED Discharge Assessment Last Done: 04/29/24 11:37 Discharge Date/Time: 04/29/24 11:38 Print Language: Setswana
[2024-04-29] MEDS: Lidocaine HCl 1 % MPF 5 ML VIAL SUBCUT (09:54)
[2024-04-29 10:13] LABS: Basophils Absolute Auto 0.1 X10*3/uL (0.0-0.2); Basophils Percent Auto 0.5 % (0-2); Eosinophils Absolute Auto 0.4 X10*3/uL (0.0-0.4); Eosinophils Percent Auto 2.6 % (0-4); Hematocrit 44.7 % (42.0-52.0); Imm Gran Pct Auto 0.7 % (0.0-0.4); Lymphocytes Absolute Auto 1.4 X10*3/uL (1.2-4.9); Lymphocytes Percent Auto 10.5 % (20-40); MANUAL DIFF FLAG SCAN; Mean Corpuscular HGB Conc 33.6 g/dl (31.0-36.0); Mean Corpuscular Hemoglobin 28.8 pg (27.0-33.0); Mean Corpuscular Volume 85.8 fL (80.0-98.0); Mean Platelet Volume 10.2 fL (9.4-12.4); Monocytes Absolute Auto 1.5 X10*3/uL (0.1-1.2); Monocytes Percent Auto 11.4 % (2-11); Neutrophils Absolute Auto 9.9 x10*3/uL (2.0-8.3); Neutrophils Percent Auto 74.3 % (45-73); Platelet Count 232 X10*3/uL (160-400); Red Blood Count 5.21 X10*6/uL (4.60-5.80); Red Cell Distribution Width 13.8 % (11.0-16.0); SCAN SMEAR FLAG 1; White Blood Count 13.4 X10*3/uL (4.8-10.8)
[2024-04-29 10:31] LABS: SLIDE REVIEW VERIFIED
[2024-04-29 10:47] LABS: Anion Gap 15 (12-20); Blood Urea Nitrogen 15 mg/dL (9-16); C Reactive Protein 11.53 mg/dL (< or = 0.50); Calcium 9.5 mg/dL (8.4-10.2); Carbon Dioxide 29 mmol/L (22-29); Chloride 101 mmol/L (96-108); Creatinine Clr Calc Pharmacy 106.4; Estimated Glomerular Filt Rate > 60; Glucose Random 101 mg/dL (60-115); Potassium 4.9 mmol/L (3.3-5.1); Sodium 140 mmol/L (135-145)
[2024-04-29 10:51] LABS: Erythrocyte Sedimentation Rate 40 MM/HR (0-15)
[2024-04-29 11:06] VITALS: BP 141/84; PULSE 83; RESP 14; TEMP 36.9; O2SAT 97
[2024-04-29] MEDS: Sulfamethox/Trimeth 800/160 TABLET 1 TAB PO (11:34)
[2024-04-29 11:37] VITALS: BP 141/84; PULSE 83; RESP 14; TEMP 36.9; O2SAT 97
== END 2024-04-29 11:38 | disposition home or self-care (01) ==
PROVIDERS: Physician Assistant; Emergency Provider Emergency Medicine; PCP Nurse Practitioner Adult Health
DX: L02.416 Cutaneous abscess of left lower limb (principal); L03.116 Cellulitis of left lower limb; I10 Essential (primary) hypertension; F17.200 Nicotine dependence, unspecified, uncomplicated
CPT/HCPCS: 10060; 36415; 80048; 85025; 85652; 86140; 87070; 87077; 87186; 87205; 99283; 99284

== ENCOUNTER 2025-03-20 23:30 | Emergency (ER) | payer MEDICAID, SELFPAY ==
[2025-03-20 23:31] VITALS: BP 151/81; PULSE 97; RESP 18; TEMP 36.1; O2SAT 98; BMI 36.2
--- NOTE | 2025-03-21 00:23 | ED_ITS ---
HPI - General Adult General Chief complaint: Skin/Abscess/Foreign Body Stated complaint: back pain Time Seen by Provider: 03/21/25 00:13 Source: patient Limitations: no limitations History of Present Illness ED Provider: Nena Patel PA-C HPI narrative: 65-year-old male presents with potential abscess to right lower back x5 days. Patient states he has had similar lesions throughout the years. Denies active drainage from the site, no fever. Related Data Home Medications ?Medication ?Instructions ?Recorded ?Confirmed levothyroxine 100 mcg tablet 1 tab PO DAILY 12/02/21 12/02/21 lorazepam 1 mg tablet 1 mg PO DAILY 12/02/21 12/02/21 losartan 25 mg tablet 1 tab PO DAILY 12/02/21 12/02/21 sertraline 100 mg tablet 1 tab PO BID 12/02/21 12/02/21 simvastatin 40 mg tablet 1 tab PO BEDTIME 12/02/21 12/02/21 Previous Rx's ?Medication ?Instructions ?Recorded benzonatate 200 mg capsule 200 mg PO TID PRN cough #20 caps 04/29/22 codeine 10 mg-guaifenesin 100 mg/5 10 ml PO Q4-6H PRN cough #120 mL 04/29/22 mL oral liquid (Virtussin AC) doxycycline monohydrate 100 mg 100 mg PO BID #20 caps 04/29/22 capsule prednisone 20 mg tablet 40 mg (2 x 20 mg) PO DAILY #8 tabs 04/29/22 clindamycin HCl 300 mg capsule 300 mg PO Q6H 7 days #28 caps 06/28/22 oxycodone 5 mg tablet 5 mg PO Q6H PRN severe pain (scale 06/28/22 score 7-10) #9 tabs sulfamethoxazole 800 1 tab PO BID #7 tabs 04/29/24 mg-trimethoprim 160 mg tablet (Bactrim DS) clindamycin HCl 150 mg capsule 450 mg (3 x 150 mg) PO Q8H 7 days 04/30/24 #63 caps clindamycin HCl 150 mg capsule 450 mg (3 x 150 mg) PO TID #63 caps 03/21/25 sulfamethoxazole 800 1 tab PO Q12H #13 tabs 03/21/25 mg-trimethoprim 160 mg tablet (Bactrim DS) Allergies Allergy/AdvReac Type Severity Reaction Status Date / Time cephalexin [From Keflex] Allergy Severe Anaphylaxis Verified 03/20/25 23:33 almond [ALMONDS] Allergy Unknown UNKNOWN Verified 03/20/25 23:33 cat dander [CAT] Allergy Unknown UNKNOWN Verified 03/20/25 23:33 pecan nut [PECAN] Allergy Unknown UNKNOWN Verified 03/20/25 23:33 tree and shrub pollen [TREE] Allergy Unknown UNKNOWN Verified 03/20/25 23:33 walnut [WALNUT] Allergy Unknown UNKNOWN Verified 03/20/25 23:33 doxycycline Allergy Rash Verified 03/20/25 23:33 GRASS Allergy Unknown UNKNOWN Uncoded 07/29/20 14:54 Review of Systems Review of Systems: Yes all other systems are reviewed and are negative Constitutional: Constitutional: Denies fatigue and Denies fever(s) Cardiovascular: Cardiovascular: Denies chest pain and Denies dyspnea Respiratory: Respiratory: Denies cough and Denies dyspnea Gastrointestinal: Gastrointestinal: Denies abdominal pain, Denies nausea and Denies vomiting Integumentary/Breasts: Skin/Breast: Reports erythema and Reports sores Endocrine: Endocrine: Denies fatigue PMFSH Past Medical History Attestation statement: The following information was validated with the patient. Medical History Carotid artery disease Hypertension Carotid artery disease Social History Social History Alcohol intake: never Patient Tobacco Use Status: Current everyday Tobacco user Advance Directives: No Advance Directives Information Provided: Yes Do you have a plan to hurt others: No Plan Physical Exam ED Vital Signs: Vital Signs - 24 hr 03/20/25 23:31 03/21/25 01:09 Temperature 97.0 F 97.0 F Pulse Rate 97 97 Respiratory Rate 18 18 Blood Pressure 151/81 H 151/81 H Pulse Oximetry 98 98 Oxygen Delivery Method Room Air Room Air BMI result Body Mass Index 36.2 Const Other: Alert well-appearing Orientation/consciousness: patient oriented x3 Resp Effort & Inspection: normal respiratory effort Cardio Other: Normal peripheral perfusion Skin Other: Warm dry no rash, scattered regions of folliculitis, 1 large region that is erythematous somewhat raised, indurated, no central fluctuance, no purulent drainage from the site Neuro General: patient oriented x3, gait normal, no focal motor deficits and CN's II- XI intact bilaterally Psych Other: Cooperative Medications Administered Discontinued Medications Generic Name Dose Route Start Last Admin Trade Name Freq PRN Reason Stop Dose Admin Clindamycin HCl 450 mg 03/21/25 00:54 03/21/25 01:05 Clindamycin Hcl 150 Mg Capsule PO 03/21/25 00:55 Not Given ONCE ONE Trimethoprim/Sulfamethoxazole 1 tab 03/21/25 00:54 03/21/25 01:01 Sulfamethox/Trimeth 800/160 Tablet PO 03/21/25 00:55 1 tab ONCE ONE Administration Medical Decision Making Medical Decision Making MDM Narrative: 65-year-old male presents with potential abscess to right lower back x5 days. Patient states he has had similar lesions throughout the years. Denies active drainage from the site, no fever. No relevant chronic issues History: Per patient I have considered the following differential diagnoses: Cellulitis, purulent cellulitis, abscess Plan: Viewed the site with bedside ultrasound, the patient only a cellulitis, there was no drainable pocket of pus. Given his allergy profile we will cover with Bactrim and clindamycin Discharge Plan Discharge Clinical Impression: Cellulitis Patient Disposition: Home, Self-Care Instructions: Cellulitis (ED), Warm Compress or Soak (ED) Additional Instructions: You were found to have cellulitis. See home care instructions. Take both antibiotics as directed, complete the course of each antibiotic. Be sure to take a probiotic, this will help to replenish the good bacteria in your gut, and helped to deter diarrhea. Follow up with your primary care provider as needed. For pain, you can use [id number] ibuprofen 600 mg taken every 6 hours with food, alternated with [id number] Tylenol 1000 mg taken every 8 hours. Prescriptions: New clindamycin HCl 150 mg capsule 450 mg PO TID Qty: 63 0RF sulfamethoxazole-trimethoprim [Bactrim DS] 800-160 mg tablet 1 tab PO Q12H Qty: 13 0RF No Action doxycycline monohydrate 100 mg capsule 100 mg PO BID Qty: 20 0RF prednisone 20 mg tablet 40 mg PO DAILY Qty: 8 0RF benzonatate 200 mg capsule 200 mg PO TID PRN (Reason: cough) Qty: 20 0RF codeine-guaifenesin [Virtussin AC] 10-100 mg/5 mL liquid 10 ml PO Q4-6H PRN (Reason: cough) Qty: 120 0RF sertraline 100 mg tablet 1 tab PO BID simvastatin 40 mg tablet 1 tab PO BEDTIME levothyroxine 100 mcg tablet 1 tab PO DAILY losartan 25 mg tablet 1 tab PO DAILY lorazepam 1 mg tablet 1 mg PO DAILY clindamycin HCl 300 mg capsule 300 mg PO Q6H 7 Days Qty: 28 0RF oxycodone 5 mg tablet 5 mg PO Q6H PRN (Reason: severe pain (scale score 7-10)) Qty: 9 0RF Rx Instructions: Partial Fill upon patient request. sulfamethoxazole-trimethoprim [Bactrim DS] 800-160 mg tablet 1 tab PO BID Qty: 7 0RF Rx Instructions: give 3 days/wk (alternating days) clindamycin HCl 150 mg capsule 450 mg PO Q8H 7 Days Qty: 63 0RF Interventions: ED Discharge Assessment Last Done: 03/21/25 01:09 Discharge Date/Time: 03/21/25 01:10 Print Language: Croatian
[2025-03-21] MEDS: Sulfamethox/Trimeth 800/160 TABLET 1 TAB PO (01:01)
[2025-03-21 01:09] VITALS: BP 151/81; PULSE 97; RESP 18; TEMP 36.1; O2SAT 98
== END 2025-03-21 01:10 | disposition home or self-care (01) ==
PROVIDERS: Emergency Provider Emergency Medicine; PCP Nurse Practitioner Adult Health
DX: L03.312 Cellulitis of back [any part except buttock and flank] (principal); I10 Essential (primary) hypertension; F17.200 Nicotine dependence, unspecified, uncomplicated
CPT/HCPCS: 99282; 99283

== ENCOUNTER 2025-11-09 08:29 | Emergency (ER) | payer OTHER, SELFPAY ==
--- OUTSIDE RECORDS SUMMARY | 2021-04-19 10:57 | XMS_ITS | Encounter Summary ---
Author Organization [facility] Address [address] [place] [id number] Phone Care Team Providers Care Hydroelectric Operator Name Role Phone Ivonne Coley NP Primary Care Provider [phone] Encounter Details Date Type Department Care Team (Late st Contact Info) Description 04/19/2021 11:57 AM EDT Hospital Encounter [facility] [address] [place] [id number] Verna Talamantes CNP [address] [place] [address] [email or web address] Social History Tobacco Use Types Packs/Day Years Used Date Smoking Tobacco: Every Day Cigarettes 0.5 34 Started: 1991 Smokeless Tobacco: Never Alcohol Use Standard Drinks/Week Comments No 0 (1 standard drink = 0.6 oz pur e alcohol) hx of abuse, 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 No 03/25/2025 Education Answer Date Recorded Are you interested in help w ith more adult education (for example, completing high school, GED, job training, learning the Azeri language, technical skills, or developing parenting skills)? No 03/25/2025 Are you concerned about learning? Not on file 03/25/2025 No 03/25/2025 Yes 03/25/2025 Food Answer Date Recorded Within the past 6 months we worried whether our food would run out before we got money to buy more. Never True 03/25/2025 Within the past 6 months the food we bought just didn't last and we didn't have enough money to get more. Never True Residential Stability Answer Date Recor ded What is your housing situation today? I have shar sing 03/25/2025 How many times have you move d in the past 12 months? Zero (I did not move) 03/25/2025 Paying for Meds Answer Date Recorded Do you have trouble paying for medicines? No 03/25/2025 Paying Utility Bills Answer Date Record ed Do you have trouble paying your heating or elect ricity bill? No 03/25/2025 Transportation Answer Date Recorded Has the lack of transportati on kept you from medical appointments or from getting medications? No 03/25/2025 Unemployment Answer Date Recorded Are you currently unemployed or working on a part-time or temporary basis, and looking for work? No 02/28/2022 Digital Access Answer Date Recorded No 03/25/2025 Yes 03/25/2025 Do you have reliable internet access at home? Ye s 03/25/2025 Do you have a device (e.g., phone, tablet, computer) with a working camera? Yes 03/25/2025 SNAP & WIC Answer Date Recorded Do you receive benefits from SNAP (the Supplemental Nutrition Assistance Program) or the Food Stamp Program? No 02/04/2024 SNAP is a free program that can help you and your family get access to healthy foods, nutrition classes, utility discounts, and more. Would you be interested in learning more? No 02/04/2024 Can we help you enroll in SNAP? Not on file 02/04/2024 Benefits received from WIC? Not on file 01/11 WIC is a free program, interested in learning mo re? Not on file 02/04/2024 Can we help you enroll in WIC? Not on file 0 02/04/2024 Intimate Partner Violence Answer Date R ecorded Are you denied basic needs s uch as food, clothing, or medical care? No 08/18/2025 In the past 12 months have y ou been in a relationship with a person who hurts, threatens, or tries to control you? No 08/18/2025 Are you denied basic needs s uch as food, clothing, or medical care? No 08/18/2025 In the past 12 months have y ou been in a relationship with a person who hurts, threatens, or tries to control you? No 08/18/2025 Sex and Gender Information Value Date Recorded Sex Assigned at Not on file Legal Sex Male 7:34 PM EST Gender Identity Not on file Sexual Orientation Not on file documented as of this encounter Plan of Treatment Upcoming Encounters Date Type Department Care Team (Late st Contact Info) Description 03/29/2026 1:10 PM EDT Office Visit [facility] [address] [facility] [address] [place], [place] [id number] Ivonne Coley NP [address] [facility] [address] [place] [phone] [email or web address] documented as of this encounter Procedures Procedure Name Priority Date/Time Associated Diagnosis Comments XR TOES 2 OR MORE VIEWS (RIGHT) Routine 04/19/2021 12:05 PM EDT Pain of right great toe documented in this encounter Results * XR Toes 2 or More Views (Right) (04/19/2021 12:05 PM EDT) Anatomical Region Laterality Modality Foot Right Computed Radiogr aphy 04/19/2021 12:5 5 PM EDT Impressions 04/19/2021 1:01 PM EDT Mildly comminuted and minimally displaced fracture of the base of the distal phalanx of the great toe with intra-articular extension. Moderate associated soft tissue swelling. Critical results were communicated and documented using the Alert Notification of Critical Radiology Results (ANCR) system. Narrative 04/19/2021 1:01 PM EDT TECHNIQUE: XR TOES 2 OR MORE VIEWS (RIGHT) COMPARISON: Right foot radiographs dated 04/05/2012. FINDINGS: There is a mildly comminuted and minimally displaced fracture of the base of the distal phalanx of the great toe with intra-articular extension. Moderate associated soft tissue swelling. No subluxation. Interval worsening of severe degenerative changes of the first metatarsophalangeal joint. New small periosteal reaction along the second mid to distal metatarsal shaft likely reflecting sequela prior fracture. Well-corticated ossific density adjacent to the navicular bone likely accessory ossicle.. Procedure Note Mena Sam MD - 04/19/2021 TECHNIQUE: XR TOES 2 OR MORE VIEWS (RIGHT) COMPARISON: Right foot radiographs dated 04/05/2012. FINDINGS: There is a mildly comminuted and minimally displaced fracture of the baseof the distal phalanx of the great toe with intra-articular extension.Moderate associated soft tissue swelling. No subluxation. Interval worsening of severe degenerative changes of the firstmetatarsophalangeal joint. New small periosteal reaction along the second mid to distal metatarsalshaft likely reflecting sequela prior fracture. Well-corticated ossific density adjacent to the navicular bone likelyaccessory ossicle.. IMPRESSION: Mildly comminuted and minimally displaced fracture of the base of thedistal phalanx of the great toe with intra-articular extension. Moderateassociated soft tissue swelling. Critical results were communicated and documented using the AlertNotification of Critical Radiology Results (ANCR) system. Verna Talamantes BIRD CAGE ASSEMBLER IMG XR LOWER EXTREMITY Nataliia l Result documented in this encounter Visit Diagnoses Not on filedocumented in this encounter Additional Health Concerns Infection Onset Date Last Indicated Resolved Time 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 Utility 04/19/2015 04/19/2015 12/27/2022 1:[address] CoV-Risk 03/25/2024 03/26/2024 04/05/2024 1:22 AM EDT Assessment Noted Time PHQ-2 Depression Total Score: 1 10/25/20 20 12:56 PM EST documented as of this encounter Care Teams Hydroelectric Operator Relationship Specialty Start Date End Date Ivonne Coley NP [address] [place] [address] [address] [place] [address] [email or web address] PCP - General Internal Medicine 07/07/20 09/25/23 documented as of this encounter Additional Source Comments The information contained in this document represents components of the legal health record. It is not the complete legal health record.[facility]
--- NOTE | ~2025-11-09 | CT_ITS ---
EXAMINATION: CT HEAD WITHOUT CONTRAST CLINICAL INFORMATION: Fall,? Head trauma. COMPARISON: None available. TECHNIQUE: Contiguous axial imaging was performed from the skull base to vertex without intravenous administration of contrast. This CT examination was performed using dose optimization techniques as appropriate, variously including the following: *Automated exposure control *Adjustment of mA and/or kV according to patient size (this includes techniques or standardized protocols for targeted exams where dose is matched to indication/reason for exam; i.e. extremities or head) *Use of iterative reconstruction technique FINDINGS: There is no evidence of intracranial hemorrhage or extra-axial fluid collection. There is no mass effect, or edema. No CT evidence of acute territorial infarct. Ventricles, sulci, and cisterns are normal in size and configuration for patient age. No hydrocephalus. No midline shift. Negative hyperdense MCA sign. Negative insular ribbon sign. Patchy periventricular and deep white matter hypoattenuation is consistent with mild to moderate small vessel ischemic changes. Normal pituitary. Atheromatous calcification of the bilateral carotid siphons and V4 segments vertebral arteries bilaterally. Globes and orbital contents demonstrate calcification of the bilateral trochlea, a finding which can be associated with diabetes. No extracranial soft tissue abnormalities. The paranasal sinuses, mastoid air cells, and tympanic cavities are normally aerated. No suspicious bony abnormalities. There are no acute fractures evident. CT/CT head/brain wo IV con IMPRESSION: No acute intracranial abnormality. No fracture evident. Electronically signed by: Atul Cowan MD 11/09/2025 09:57 AM [facility]
--- NOTE | ~2025-11-09 | XR_ITS ---
EXAMINATION: XR SHOULDER, RIGHT CLINICAL INFORMATION: Fall COMPARISON: None available. TECHNIQUE: AP external rotation, Grashey, scapular Y, and axillary views of the right shoulder. FINDINGS: Normal bone mineralization. No fracture, dislocation, or suspicious bone lesion. Normal alignment. The glenohumeral joint demonstrates moderate to severe degenerative arthritis. There are large undersurface osteophytes extending into the inferior joint recesses. The AC joint demonstrates mild to moderate superior and undersurface spurring. There is a type I acromion. No undersurface spurring. The subacromial space is preserved. Remainder of the soft tissue and bony structures appear normal. XR/XR shoulder RT min 2V IMPRESSION: 1. No fracture or dislocation. 2. Moderate to severe degenerative arthritis of the glenohumeral joint. 3. Mild to moderate arthritis of the AC joint with both superior and undersurface spurring. Electronically signed by: Atul Cowan MD 11/09/2025 09:30 AM [facility]
--- NOTE | ~2025-11-09 | CT_ITS ---
EXAMINATION: CT CERVICAL SPINE WITHOUT CONTRAST CLINICAL INFORMATION: Fall, neck pain. COMPARISON: None. TECHNIQUE: Spiral CT imaging of the cervical spine performed in axial plane without contrast. Multiplanar reformatted images were constructed from the axial data set. This CT examination was performed using dose optimization techniques as appropriate, variously including the following: *Automated exposure control *Adjustment of mA and/or kV according to patient size (this includes techniques or standardized protocols for targeted exams where dose is matched to indication/reason for exam; i.e. extremities or head) *Use of iterative reconstruction technique FINDINGS: CORONAL ALIGNMENT: -There is a trace right convex scoliosis, possibly positional. SAGITTAL ALIGNMENT: -Minimal reversal of the normal lordosis centered at C4. No evidence of traumatic subluxation. C1-C2 AND CRANIOCERVICAL JUNCTION: -Intact and aligned. There is moderate degenerative arthritis in the anterior atlantoaxial joint. VERTEBRAL BODIES AND FACETS: -No fracture, compression deformity, or suspicious bone lesion. 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 -No evidence of traumatic subluxation. -Normal facet alignment bilaterally. There is fusion of the left C2-3 facets, likely degenerative. -There are multilevel hypertrophic degenerative facet changes throughout, left greater than right. DISCS: -Severe disc degeneration is present C5-6 and C6-7 with mild endplate sclerosis, and associated disc osteophytic spurring. CENTRAL CANAL: -No evidence of acute large disc herniation allowing for modality limitations. -Dorsal disc osteophytic ridge complexes at C5-6 and C6-7 contribute to at least moderate central canal narrowing, likely moderate to severe at C6-7. PREVERTEBRAL AND PARAVERTEBRAL SOFT TISSUES: -There is no prevertebral soft tissue edema or soft tissue swelling. -Moderate left and mild right carotid bulb calcification is present. There are surgical clips surrounding the right carotid sheath and sternocleidomastoid muscles. -Normal-appearing thyroid gland. -No evidence of mass or abnormal lymphadenopathy within the neck. LUNG APICES: -Clear bilaterally without pneumothorax. CT/CT cervical spine wo IV con IMPRESSION: 1. No CT evidence of acute cervical spine fracture or injury. 2. Moderate degenerative spondylosis. Dorsal disc osteophytic ridge complexes contribute to moderate central canal stenosis at C5-6, and moderate to severe stenosis at C6-7. 3. Postop changes in the right neck. Electronically signed by: Atul Cowan MD 11/09/2025 10:07 AM [facility]
[2025-11-09 08:50] VITALS: BP 160/81; PULSE 97; RESP 16; TEMP 36.3; O2SAT 95; BMI 38.8
--- NOTE | 2025-11-09 09:15 | ED.HEATRA ---
HPI - Head Injury General Chief complaint: Head Injury Stated complaint: fell downstairs, hit head Time Seen by Provider: 11/09/25 09:12 Source: patient and old records reviewed Mode of arrival: ambulatory Limitations: no limitations History of Present Illness ED Provider: ALEXIA GAMEZ Narrative: 65-year-old male with past medical history anxiety, hypothyroidism, hypertension, hyperlipidemia, not on blood thinners here with complaint of walking down steps this morning at his apartment he was wearing his birkenstocks he slipped and fell on the stairs. He hit the back of his head and right shoulder. He had no LOC. He denies any other injury such as injury to the back. He was able to get himself up. He slipped due to the ice. He does have prior right shoulder pain but this fall exacerbated it MD Complaint: head injury, head pain and fall Onset (ago): minute(s) (Prior to arrival) Mechanism of Injury: fall Place: home Loss of Consciousness: no Location of injury: occipital Severity: mild Quality: aching Radiation: none Other Injuries: other (Pulled his neck and right shoulder pain) Associated symptoms: denies other symptoms Related Data Home Medications ?Medication ?Instructions ?Recorded ?Confirmed levothyroxine 100 mcg tablet 1 tab PO DAILY 12/02/21 12/02/21 lorazepam 1 mg tablet 1 mg PO DAILY 12/02/21 12/02/21 losartan 25 mg tablet 1 tab PO DAILY 12/02/21 12/02/21 sertraline 100 mg tablet 1 tab PO BID 12/02/21 12/02/21 simvastatin 40 mg tablet 1 tab PO BEDTIME 12/02/21 12/02/21 Previous Rx's ?Medication ?Instructions ?Recorded benzonatate 200 mg capsule 200 mg PO TID PRN cough #20 caps 04/29/22 codeine 10 mg-guaifenesin 100 mg/5 10 ml PO Q4-6H PRN cough #120 mL 04/29/22 mL oral liquid (Virtussin AC) doxycycline monohydrate 100 mg 100 mg PO BID #20 caps 04/29/22 capsule prednisone 20 mg tablet 40 mg (2 x 20 mg) PO DAILY #8 tabs 04/29/22 clindamycin HCl 300 mg capsule 300 mg PO Q6H 7 days #28 caps 06/28/22 oxycodone 5 mg tablet 5 mg PO Q6H PRN severe pain (scale 06/28/22 score 7-10) #9 tabs sulfamethoxazole 800 1 tab PO BID #7 tabs 04/29/24 mg-trimethoprim 160 mg tablet (Bactrim DS) clindamycin HCl 150 mg capsule 450 mg (3 x 150 mg) PO Q8H 7 days 04/30/24 #63 caps clindamycin HCl 150 mg capsule 450 mg (3 x 150 mg) PO TID #63 caps 03/21/25 sulfamethoxazole 800 1 tab PO Q12H #13 tabs 03/21/25 mg-trimethoprim 160 mg tablet (Bactrim DS) Allergies Allergy/AdvReac Type Severity Reaction Status Date / Time cephalexin (From Keflex) Allergy Severe Anaphylaxis Verified 11/09/25 08:53 almond (ALMONDS) Allergy Unknown UNKNOWN Verified 11/09/25 08:53 cat dander (CAT) Allergy Unknown UNKNOWN Verified 11/09/25 08:53 pecan nut (PECAN) Allergy Unknown UNKNOWN Verified 11/09/25 08:53 tree and shrub pollen (TREE) Allergy Unknown UNKNOWN Verified 11/09/25 08:53 walnut (WALNUT) Allergy Unknown UNKNOWN Verified 11/09/25 08:53 doxycycline Allergy Rash Verified 11/09/25 08:53 Sulfa (Sulfonamide Allergy Rash Verified 11/09/25 08:54 Antibiotics) GRASS Allergy Unknown UNKNOWN Uncoded 11/09/25 08:53 Review of Systems Review of Systems: Yes all other systems are reviewed and are negative PMFSH Past Medical History Attestation statement: The following information was validated with the patient. Source: old records reviewed Medical History Carotid artery disease Hypertension Carotid artery disease Social History Social History Alcohol intake: never Patient Tobacco Use Status: Current everyday Tobacco user Advance Directives: No Advance Directives Information Provided: No Do you have a plan to hurt others: No Plan Physical Exam Vital Signs: Vital Signs: Last Vital Signs Temp 97.4 F 11/09/25 08:50 Pulse 97 11/09/25 08:50 Resp 16 11/09/25 08:50 BP 160/81 H 11/09/25 08:50 Pulse Ox 95 11/09/25 08:50 O2 Del Method Room Air 11/09/25 08:50 BMI result Body Mass Index 38.8 Appearance: Alert. Oriented X3. No acute distress. Eyes: Pupils equal, round and reactive to light. ENT: Pharynx normal. Contusion to the back of the scalp but no santiago or raccoon sign he has no blood coming from the nose or the ears. Neck: Normal inspection. Neck supple. CVS: Normal heart rate and rhythm. Pulses normal. Respiratory: No respiratory distress. Breath sounds normal. Abdomen: Soft and nontender. Skin: Skin warm and dry. Normal skin color. Normal skin turgor. Extremities: No lower extremity edema. Right shoulder has tenderness to palpation along the AC joint but he is distal neurovascularly intact I am able to range the joint Neuro: Oriented X 3. No motor deficit. No sensory deficit. CN2-12 intact Medical Decision Making Medical Decision Making MDM Narrative: 65-year-old male with past medical history anxiety, hypothyroidism, hypertension, hyperlipidemia, not on blood thinners here with complaint of head, neck, right shoulder pain status post slip and fall on the ice this morning. He has no risk factors such as blood thinners. He is GCS 15. He has no loss of consciousness. Denies any back pain or any other injury. At this time given his age and mechanism he is going to get CT head, C-spine, right shoulder x-ray. Differential Diagnosis Differential Diagnoses: The differential diagnosis associated with the presentation includes Closed head injury, strain, sprain, shoulder injury Admission/Observation Consideration of admission/observation: Escalation of care including admission/observation considered Not on thinners, GCS 15, no LOC at this time he has steady gait he is stable for DC Independent Interpretation I performed an independent interpretation of an: Plain X-Ray (No fracture dislocation) and CT Scan (No acute trauma) Radiology Impression Discussion of test interpretation with radiology: I have reviewed the radiologist's reading. External Record Review External record reviewed: Outpatient record Prescription Management I considered prescription management with: Pain Medication and Other Discharge Plan Discharge Clinical Impression: Closed head injury Qualifiers: Encounter type: initial encounter Qualified Code(s): S09.90XA - Unspecified injury of head, initial encounter Neck strain Qualifiers: Encounter type: initial encounter Qualified Code(s): S16.1XXA - Strain of muscle, fascia and tendon at neck level, initial encounter Right shoulder strain Qualifiers: Encounter type: initial encounter Qualified Code(s): S46.911A - Strain of unspecified muscle, fascia and tendon at shoulder and upper arm level, right arm, initial encounter Patient Disposition: Home, Self-Care Instructions: Cervical Strain (ED), Head Injury (ED) Additional Instructions: Your CT scans of the brain and cervical spine did not show any acute trauma You have arthritis and AC joint calcifications on the right shoulder but you do not have any obvious signs of trauma such as broken bone or separation of the AC joint Please rest over the next few days Return for any worsening symptoms or concerns such as vomiting, confusion, inability to eat or drink or any other concerns You can take Tylenol or Motrin as needed [id number] for aches and pains 1. No CT evidence of acute cervical spine fracture or injury. 2. Moderate degenerative spondylosis. Dorsal disc osteophytic ridge complexes contribute to moderate central canal stenosis at C5-6, and moderate to severe stenosis at C6-7. 3. Postop changes in the right neck. Prescriptions: No Action doxycycline monohydrate 100 mg capsule 100 mg PO BID Qty: 20 0RF prednisone 20 mg tablet 40 mg PO DAILY Qty: 8 0RF benzonatate 200 mg capsule 200 mg PO TID PRN (Reason: cough) Qty: 20 0RF codeine-guaifenesin [Virtussin AC] 10-100 mg/5 mL liquid 10 ml PO Q4-6H PRN (Reason: cough) Qty: 120 0RF sertraline 100 mg tablet 1 tab PO BID simvastatin 40 mg tablet 1 tab PO BEDTIME levothyroxine 100 mcg tablet 1 tab PO DAILY losartan 25 mg tablet 1 tab PO DAILY lorazepam 1 mg tablet 1 mg PO DAILY clindamycin HCl 300 mg capsule 300 mg PO Q6H 7 Days Qty: 28 0RF oxycodone 5 mg tablet 5 mg PO Q6H PRN (Reason: severe pain (scale score 7-10)) Qty: 9 0RF Rx Instructions: Partial Fill upon patient request. sulfamethoxazole-trimethoprim [Bactrim DS] 800-160 mg tablet 1 tab PO BID Qty: 7 0RF Rx Instructions: give 3 days/wk (alternating days) clindamycin HCl 150 mg capsule 450 mg PO Q8H 7 Days Qty: 63 0RF clindamycin HCl 150 mg capsule 450 mg PO TID Qty: 63 0RF sulfamethoxazole-trimethoprim [Bactrim DS] 800-160 mg tablet 1 tab PO Q12H Qty: 13 0RF Stand Alone Forms: Work/School Release Print Language: Cook Islander
--- OUTSIDE RECORDS SUMMARY | 2025-11-09 10:35 | XMS_ITS | Encounter Summary ---
Author Organization [facility] Address [address] [place] [address] Phone Care Team Providers Care Senior Audit Manager Name Role Phone Ivonne Coley NP Primary Care Provider [phone] Nakul Frankel MD Unavailable [phone] Encounter Details Date Type Department Care Team (Late st Contact Info) Description 08/27/2025 Procedure Pass [facility] Admitting Dept Virtual Department [address], [place] [id number] Social History Tobacco Use Types Packs/Day Years [...] high school, GED, job training, learning the Azerbaijani language, technical skills, or developing parenting skills)? [...] your housing situation today? I have shar gutierrez 03/25/2025 How many times have you move [...] Description 03/29/2026 1:10 PM EDT Office Visit [facility] 14 [facility] [address] [place] [id number] Ivonne Coley NP 14 [facility] [address] [place] [id number] [email or web address] documented as of this encounter Visit Diagnoses Not on filedocumented in this encounter Additional Health Concerns Assessment Noted Time PHQ-2 Depression Total Score: 2 03/25/20 25 2:26 PM EDT documented as of this encounter Care Teams Senior Audit Manager Relationship Specialty Start Date End Date Ivonne Coley NP [address] [id number] [email or web address] PCP - General Nurse Practitioner 06/01/25 Nakul Frankel MD 14 [facility] [address] [place] [id number] [email or web address] Insurance Assigned Provider 09/26/25 documented as of this encounter Additional Source Comments The information contained in this document represents components of the legal health record. It is not the complete legal health record.[facility]
--- OUTSIDE RECORDS SUMMARY | 2025-11-09 10:35 | XMS_ITS | Patient Health Record ---
Author Organization [facility] Address [address] [place] [id number] Care Team Providers Care Sparker And Patcher Name Role Phone Cornelius White Jr Reason For Referral No Information Plan Of Treatment No Information
--- OUTSIDE RECORDS SUMMARY | 2025-11-09 10:35 | XMS_ITS | Clinical Summary ---
Author Organization [facility] Address [address] [employer] [facility] [address] [place] [address] Phone Care Team Providers Care Shift Supervisor Name Role Phone Neli Coley NP Primary Care Provider [phone] Nakul Frankel MD Unavailable [phone] Allergies Active Allergy Reactions Criticality Noted Date Comments Cephalexin Erythema Multiforme 04/07/2018 Lisinopril Cough 07/26/2020 Sulfamethoxazole-Trimethopr im Dry Mouth,Flushing,GI Upset,Headaches,Itching,Ra sh Low 03/20/2025 Tree Nuts 11/28/2021 Medications albuterol 90 mcg/actuation inhaler Inhale 2 puffs into the lungs every 6 (six) hours as needed for wheezing. 18 g Active fluticasone propion-salmetero L (ADVAIR DISKUS) 250-50 mcg/dose DISKUSIndications :Mild persistent asthmatic bronchitis with acute exacerbation Inhale 1 puff into the lungs 2 (two) times a day. 60 each 1 Active acetaminophen (TYLENOL) 500 MG tablet Take 500 mg by mouth every 6 (six) hours as needed. Active ibuprofen (ADVIL,MOTRIN) 800 MG tablet Take 800 mg by mouth every 8 (eight) hours as needed. 04/09/2 025 Active varenicline tartrate (CHANTIX) 1 mg tabletIndications :Tobacco dependence syndrome Take 1 tablet (1 mg total) by mouth 2 (two) times a day. Once starting dose (0.5mg tablets) complete 56 tablet 1 Active Additional Information Patient not taking.Reported on 09/17/2025 LORazepam (ATIVAN) 1 MG tabletIndications :Depression with anxiety TAKE TWO TABLETS BY MOUTH THREE TIMES A DAY 168 tablet Active Additional Information Patient not taking.Reported on 09/17/2025 nabumetone (RELAFEN) 750 MG tablet Take 1 tablet (750 mg total) by mouth 2 (two) times a day. For 3 days then bid prn 20 tablet Active Additional Information Patient not taking.Reported on 09/17/2025 LORazepam (ATIVAN) 1 MG tabletIndications :Depression with anxiety Take 2 tablets (2 mg total) by mouth 3 (three) times a day. 15 tablet Active Additional Information Patient not taking.Reported on 09/17/2025 sertraline (ZOLOFT) 100 MG tablet TAKE ONE AND ONE-HALF TABLETS ONCE DAILY 135 tablet 1 Active LORazepam (ATIVAN) 1 MG tablet Take 2 tablets (2 mg total) by mouth every 8 (eight) hours as needed for anxiety. 12 tablet Active Additional Information Patient not taking.Reported on 09/17/2025 levothyroxine (SYNTHROID, LEVOTHROID) 100 MCG tabletIndications :Acquired hypothyroidism TAKE ONE TABLET BY MOUTH EVERY DAY 90 tablet Active simvastatin (ZOCOR) 40 MG tabletIndications :Mixed hyperlipidemia TAKE ONE TABLET BY MOUTH EVERY DAY 90 tablet Active LORazepam (ATIVAN) 1 MG tabletIndications :Depression with anxiety Take 2 tablets (2 mg total) by mouth every 8 (eight) hours as needed for anxiety. 18 tablet Active Additional Information Patient not taking.Reported on 09/17/2025 dextroamphetamine -amphetamine (ADDERALL XR) 10 MG 24 hr capsuleIndication s:Attention deficit hyperactivity disorder (ADHD), predominantly inattentive type Take 1 capsule (10 mg total) by mouth every morning for 28 days. 28 capsule 6 Active dextroamphetamine -amphetamine (ADDERALL) 20 mg Tab tabletIndications :Attention deficit hyperactivity disorder (ADHD), predominantly inattentive type Take 0.5 tablets (10 mg total) by mouth 2 (two) times a day. 28 tablet Active LORazepam (ATIVAN) 1 MG tabletIndications :Depression with anxiety Take 2 tablets (2 mg total) by mouth 3 (three) times a day for 28 days. 168 tablet 025 2025 Active clindamycin (CLEOCIN) 150 MG capsule Take 150 mg by mouth 3 (three) times a day. 025 2024 Discontinued(N o longer taking) cyclobenzaprine (FLEXERIL) 10 MG tablet Take 1 tablet (10 mg total) by mouth 3 (three) times a day as needed (muscle). 15 tablet 025 2024 Discontinued(N o longer taking) dextroamphetamine -amphetamine (ADDERALL XR) 10 MG 24 hr capsuleIndication s:Attention deficit hyperactivity disorder (ADHD), predominantly inattentive type Take 1 capsule (10 mg total) by mouth every morning for 28 days. 28 capsule 025 2024 Discontinued(R eorder) LORazepam (ATIVAN) 1 MG tabletIndications :Depression with anxiety Take 2 tablets (2 mg total) by mouth 3 (three) times a day for 28 days. 168 tablet 025 2024 Discontinued dextroamphetamine -amphetamine (ADDERALL) 20 mg Tab tabletIndications :Attention deficit hyperactivity disorder (ADHD), predominantly inattentive type Take 0.5 tablets (10 mg total) by mouth 2 (two) times a day. 28 tablet 025 2024 Discontinued(R eorder) dextroamphetamine -amphetamine (ADDERALL XR) 10 MG 24 hr capsuleIndication s:Attention deficit hyperactivity disorder (ADHD), predominantly inattentive type Take 1 capsule (10 mg total) by mouth every morning for 28 days. 28 capsule 025 2024 Discontinued LORazepam (ATIVAN) 1 MG tabletIndications :Depression with anxiety Take 2 tablets (2 mg total) by mouth 3 (three) times a day for 28 days. 168 tablet 025 2024 Discontinued(R eorder) dextroamphetamine -amphetamine (ADDERALL) 20 mg Tab tabletIndications :Attention deficit hyperactivity disorder (ADHD), predominantly inattentive type Take 0.5 tablets (10 mg total) by mouth 2 (two) times a day. 28 tablet 025 2024 Discontinued dextroamphetamine -amphetamine (ADDERALL) 20 mg Tab tabletIndications :Attention deficit hyperactivity disorder (ADHD), predominantly inattentive type Take 0.5 tablets (10 mg total) by mouth 2 (two) times a day. 28 tablet 025 2024 Discontinued Active Problems Problem Noted Date Diagnosed Date Mild intermittent asthma without complication Hallux rigidus of both feet 01/30/2025 Flat foot 11/22/2020 Pure hypercholesterolemia 07/28/2020 Stenosis of right carotid artery 07/28/2020 Amaurosis fugax of right eye 06/29/2020 Essential hypertension 09/22/2019 Assessment & Plan (09/22/2019 2:28 PM EST): Stable, off Propranolol. Continue to monitor at home and f/u in office for readings consistently >140/90. Pt verbalizes understanding and in agreement with plan. Eczema 03/22/2018 Familial tremor 03/22/2018 Gastroesophageal reflux disease with hiatal ursula ia 03/22/2018 Hyperlipidemia 03/22/2018 Assessment & Plan (09/22/2019 2:28 PM EST): Will check fasting lipid level and call with results once available. Insomnia 03/22/2018 Left knee pain 03/22/2018 Obesity 03/22/2018 ALAN (obstructive sleep apnea) 03/22/2018 Scapholunate advanced collapse of wrist 03/22/20 18 Tobacco dependence syndrome 03/22/2018 Nondependent alcohol abuse, in remission 018 Attention deficit hyperactiv ity disorder (ADHD), predominantly inattentive type 12/14/2017 Assessment & Plan (09/22/2019 2:29 PM EST): Stable on current therapies, without evidence of abuse or diversion. Continue current regimen and f/u in 3 months with his usual primary provider, Neli Coley. Depression with anxiety 12/14/2017 Assessment & Plan (09/22/2019 2:30 PM EST): Stable on current therapies, with recently weaning off Lamictal.Continue current regimen and f/u in 3 months for reevaluation. Acquired hypothyroidism 12/14/2017 Assessment & Plan (09/22/2019 2:29 PM EST): Will check TSH and call with results once available. Will adjust Levothyroxine dose based on results. Sprain of wrist 03/04/2014 Overview (01/02/2015): Sprain of wrist Resolved Problems Problem Noted Date Diagnosed Date Resolved Date Obesity, morbid 03/13/2022 04/24/2025 Asthma 03/22/2018 07/28/2020 Hepatitis 03/22/2018 03/26/2025 Encounters Date Type Department Care Team Description 11/04/2025 Refill [facility] 14 [facility] [address] [place] [id number] Citro, Liz, SUPERVISOR PAINTING SHIP[employer]ARD Medication Refill (CSRP Adderall 20 mg ) 10/01/2025 Refill [facility] Primary [facility] [address] [address] Citro, Liz, SUPERVISOR [employer]ARD Medication Refill (CSRP Adderall) 09/17/2025 8:50 AM EST Telemedicine - audio only [facility] 14 [facility] [address] [place] [address] Neli Coley NP Attention deficit hyperactivity disorder (ADHD), predominantly inattentive type (Primary Dx); Depression with anxiety 09/12/2025 Telephone [facility] [employer] [address] [place] [address] Hanh Kaur PA-C Medication Problem (After Hours Call) 09/11/2025 Patient Outreach [facility] [address] [address] Barsalou, Shalini E Care Coordination 09/03/2025 Patient Outreach [facility] Primary Care [facility] [address] [place] [address] Shalini Banks Care Coordination 09/01/2025 Telephone [facility] [address] [place] [address] Yisel Osborn MD Constipation 08/27/2025 8:38 AM EDT Anesthesia Event [facility] Admitting [facility] Virtual Department [address] [place] [address] Mariusz New MD, MPH 08/27/2025 8:30 AM EDT - 08/27/2025 9:00 AM EDT Surgery [facility] Admitting [facility] Virtual Department [address] [place] [address] Yisel Osborn MD COLONOSCOPY 08/27/2025 7:20 AM EDT - 08/27/2025 10:09 AM EDT Hospital Encounter [facility] Virtual Department [address] [place] [address] Yisel Osborn MD Discharge Disposition: Home or Self Care 08/27/2025 Refill [facility] [address] [address] Liz Bolden CMA Medication Refill (CSRP Adderall 20 mg) 08/27/2025 Procedure Pass [facility] Admitting [facility] Virtual Department [address] [place] [address] 08/21/2025 Patient Outreach [facility] Primary [facility] [address] [address] Shalini Banks E Care Coordination 08/19/2025 Refill [facility] Primary [address] [address] Neli Coley NP Medication Refill (Simvastatin and Levothyroxine) 08/13/2025 11:15 AM EDT Pre-Admission Testing Pre Procedure Evaluation [address] [place] [address] Yisel Osborn MD 08/13/2025 Refill [facility] 14 [facility] [address] [place] [address] Neli Coley, RUDYD Medication Refill (Adderall) from Last 3 Months Immunizations Immunization Administration Dates Next Due COVID-19 (Pre-09/03) Pfizer Vaccine, mRNA, PF ,01/16/2021 Influenza Quadrivalent Preservative Free IM 10/0 11/2021,10/25/2020 Influenza Recombinant Luci valent Preservative Free IM 09/22/2019 Pneumococcal polysaccharide PPSV23 10/25/2020 Tdap 03/26/2025,02/12/2014 Family History Medical History Relation Comments Cardiomyopathy Father Cardiomyopathy Sister 2 Cardiomyopathy Sister 3 Cardiomyopathy Sister 4 Kidney failure Sister 4 Cardiomyopathy Sister 5 Relation Status Comments Brother Father Mother Sister 1 Sister 2 Sister 3 Sister 4 Alive Sister 5 Alive Sister 6 Alive Social History Tobacco Use Types Packs/Day Years Used Date Smoking Tobacco: Every Day Cigarettes 0.5 34 Started: 1991 Smokeless Tobacco: Never Tobacco Cessation:Ready to Q uit: Not Asked; Counseling Given: Not Answered Alcohol Use Standard Drinks/Week Comments No 0 [...] high school, GED, job training, learning the [place] language, technical skills, or developing parenting skills)? [...] 08/18/2025 Are you denied basic needs s [facility] as food, clothing, or medical care? No 08/18/2025 In the past 12 months have y ou been in a relationship with a person who hurts, threatens, or tries to control you? No 08/18/2025 Sex and Gender Information Value Date Recorded Sex Assigned at Not on file Legal Sex Male 7:34 PM EST Gender Identity Not on file Sexual Orientation Not on file Last Filed Vital Signs Vital Sign Reading Time Taken Comments Blood Pressure 150/73 08/27/2025 9:32 AM EDT Pulse 83 08/27/2025 9:22 AM EDT Temperature 35.9 C (96.6 F) 08/27/2025 9:12 AM EDT Respiratory Rate 17 08/27/2025 9:22 AM EDT Oxygen Saturation 97% 08/27/2025 9:22 AM EDT Inhaled Oxygen Concentration - - Weight 117.4 kg (258 lb 12.8 oz) 2024 10:59 AM EDT Height 175.2 cm (5' 8.98 ) 03/26/2025 1 0:59 AM EDT Body Mass Index 38.24 03/26/2025 10:59 AM EDT Plan of Treatment Upcoming Encounters Date Type Department Care Team (Late st Contact Info) Description 03/29/2026 1:10 PM EDT Office Visit [facility] 14 [facility] [address] [place] [address] Neli Coley NP 14 [facility] [address] [place] [address] Health Maintenance Due Date Last Done Comments COLOGUARD 2007 FIT TEST 2007 FOBT 2007 SIGMOIDOSCOPY 2007 VIRTUAL COLONOSCOPY 2007 ZOSTER VACCINES (1 of 2) 02/02/2012 LIPID PANEL 02/06/2025 02/07/2024, 03/0 06/2023, 06/30/2020, Additional history exists TSH LEVEL 02/06/2025 02/07/2024, 03/0 06/2023, 06/30/2020, Additional history exists INFLUENZA VACCINE (#1) 2025 , 10/25/2020, 09/22/2019 BLOOD PRESSURE 10/31/2025 05/01/2025 DEPRESSION SCREENING 03/25/2026 03/25/2025 PNEUMOCOCCAL VACCINES (50+ years) (2 of 2 - PCV) 03/26/2026 10/25/2020 Postponed from 10/25/2021 (Not Clinically Appropriate) SMOKING Hx and SMOKELESS TOBACCO SCREENING 10/18/2026 10/18/2025 SCREENING FOR DIABETES 02/06/2027 02/07/2024, 2023 Adult Td,Tdap Booster 03/26/2035 03/26/2025, 014 COLONOSCOPY 08/27/2035 08/27/2025, 09/20/2012 COLORECTAL CANCER SCREENING 08/27/2035 HEPATITIS C SCREENING Completed 01/17/2023 HEPATITIS A VACCINES Aged Out No long er eligible based on patient's age to complete this topic HIB VACCINES Aged Out No longer eligi ble based on patient's age to complete this topic MENINGOCOCCAL VACCINES (ACWY) Aged Out No longer eligible based on patient's age to complete this topic MENINGOCOCCAL VACCINES (B) Aged Out N o longer eligible based on patient's age to complete this topic Medical Devices Not on file Procedures Procedure Name Priority Date/Time Associated Diagnosis Comments SD COLSC FLX W/RMVL OF TUMOR POLYP LESION SNARE TQ 08/27/2025 8:38 AM EDT Screen for colon cancer Special Needs DIRECT SD COLONOSCOPY W/BIOPSY SINGLE/MULTIPLE 08/27/2025 8:38 AM EDT Screen for colon cancer Special Needs DIRECT SD COLONOSCOPY FLX DX W/COLLJ SPEC WHEN PFRMD 08/27/2025 8:38 AM EDT Screen for colon cancer Special Needs DIRECT ENDOSCOPY, COLON 08/27/2025 8:31 AM EDT LIPID PANEL Routine 02/07/2024 7:18 AM EDT Routine medical exam TSH WITH REFLEX Routine 02/07/2024 7:18 AM EDT Routine medical exam HEPATITIS C ANTIBODY, QUALITATIVE Routine 01/17/2023 9:55 AM EST Need for hepatitis C screening test from Last 3 Months or Most Recently Relevant to Health Maintenance Results * ENDOSCOPY, COLON (08/27/2025 8:31 AM EDT) Narrative Transcriptions Yisel Osborn MD - 08/27/2025 8:31 AM EDT [facility] Patient Name: Truman Alison Attending MD:: YISEL OSBORN MD, Procedure Date: 08/27/2025 8:31 AM Date of : 1960 Age: 65 Admit Type: Outpatient Gender: Male Room: [place] [address] Referring MD: NELI COLEY MD Exam Type: Colonoscopy Indications: Screening for colorectal malignant neoplasm, Last colonoscopy: September 2012 Medications: Propofol per Anesthesia Procedure: Informed consent was obtained from the patientafter discussion of the indications, limitations, alternatives, benefits, and risks of the procedure. Risks specifically discussed include but are not limited to medication reactions, missed lesions, bleeding, perforation, or the need for emergent surgery. Throughout the procedure, the patient's blood pressure, pulse, end-tidal CO2, and oxygensaturations were monitored continuously. The Olympus adult variable colonoscope [id number] #1 was introduced through the anus and advanced to the cecum, identified by appendiceal orifice andileocecal valve. The ileocecal valve, appendiceal orifice,and rectum were photographed. The colonoscopy wassomewhat difficult due to significant looping and thepatient's body habitus. Successful completion of theprocedure was aided by applying abdominal pressure. Thequality of the bowel preparation was good. The bowel preparation used was GoLYTELY via split dose instruction. Complications: No immediate complications. Estimated blood loss:None. Findings: The perianal and digital rectal examinations were normal. Pertinent negatives include normal prostate (size, shape, and consistency). The retroflexed view of the distal rectum and anal verge was normal and showed no anal or rectal abnormalities. The colon (entire examined portion) wassignificantly redundant. Multiple medium-mouthed diverticula were found inthe sigmoid colon. There was evidence of diverticular spasm. The exam was otherwise without abnormality. Retroflexion in the right colon was performed. Impression: - The distal rectum and anal verge are normal on retroflexion view. - Redundant colon. - Moderate diverticulosis in the sigmoid colon.There was evidence of diverticular spasm. - The examination was otherwise normal. - No specimens collected. Recommendation: - High fiber diet. - Repeat colonoscopy in 10 years for screening purposes. YISEL OSBORN MD 08/27/2025 9:12:31 AM This report has been signed electronically. Number of Addenda: 0 Note Initiated On: 08/27/2025 8:31 AM Procedure Code(s): --- Professional --- 59336, Colonoscopy, flexible; diagnostic, including collection of specimen(s) by brushing or washing, when performed (separateprocedure) --- Technical --- 14800, Colonoscopy, flexible; diagnostic, including collection of specimen(s) by brushing or washing, when performed (separateprocedure) Diagnosis Code(s): --- Professional --- Z12.11, Encounter for screening for malignantneoplasm of colon K57.30, Diverticulosis of large intestine without perforation or abscess without bleeding Q43.8, Other specified congenital malformations of intestine --- Technical --- Z12.11, Encounter for screening for malignantneoplasm of colon K57.30, Diverticulosis of large intestine without perforation or abscess without bleeding Q43.8, Other specified congenital malformations of intestine CPT copyright 2021 [employer]. All rights reserved. The codes documented in this report are preliminary and upon cuff turner reviewmay be revised to meet current compliance requirements. Procedure Date: 08/27/2025 8:31:[address] [place] [address] Neli Coley NP GI PROCEDURE ORDERABLES Fi nal Result * TSH with reflex (02/07/2024 7:18 AM EDT) TSH 2.49 0.27 - 4.20 uIU/mL [facility] Blood 02/07/2024 7:18 AM EDT 02/07/2024 7:24 AM EDT Neli Coley LEAF FAT SCRAPER LAB BLOOD BKR ORDERABLES F inal Result [address] [address] * Lipid panel (02/07/2024 7:18 AM EDT) Pathologist [facility] HDL 39 mg/dL [facility] Comment: Interpretation <40 mg/dL: Low HDL cholesterol (major risk factor for CHD) Greater than or equal to 60 mg/dL: High HDL cholesterol ( negative risk factor for CHD) HDL - cholesterol is affected by a number of factors, e.g. smoking, excerise, hormones, sex and age. CHOLESTEROL 190 0 - 240 mg/dL [facility] TRIGLYCERIDES 109 30 - 160 mg/dL [facility] LDL 129 50 - 129 mg/dL [facility] Comment: LDL levels in terms of risk for coronary heart disease: <100 mg/dL: Optimal 100-129 mg/dL: Near or above optimal 130-159 mg/dL: Borderline high 160-189 mg/dL: High >190 mg/dL: Very High CARDIAC RISK RATIO 4.9 3.4 - 5.0 C [facility] Blood 02/07/2024 7:18 AM EDT 02/07/2024 7:23 AM EDT Neli Coley NP LAB BLOOD BKR ORDERABLES F inal Result Performing Organization Address City/[facility]/ZIP Co de Phone Number [address] [address] * Hepatitis C antibody, qualitative (01/17/2023 9:55 AM EST) Pathologist [facility] HCV NON-REACTIV E NON-REACTI VE [facility] Blood 01/17/2023 9:55 AM EST 01/17/2023 9:59 AM EST us Neli Coley [employer]AF [employer] S[employer] LAB BLOOD BKR ORDERABLES F inal Result [facility] [address] [place] [address] from Last 3 Months or Most Recently Relevant to Health Maintenance Insurance [employer] NET PARTIAL Member Subscriber Plan / Payer (Ef fective 2025-Present) Name:Truman Rosas Relation to Subscriber:Self Name:AlisonTruman Payer ID:Not on file Group ID:Not on file Type:Medicaid Address: [address] NON NSP PCP [facility] [employer] SAF[employer] NET PARTIAL [employer] NON NSPG PCP [facility] [employer] SAFETY NET PARTIAL [facility] NON NSPG PCP [facility] [employer] SAFETY NET PARTIAL [facility] NON NSPG PCP S[facility] [employer] SAFETY NET PARTIAL [facility] NON NSPG PCP [facility] [employer] SAFETY NET PARTIAL [facility] NON NSP PCP [facility] Advance Directives For more information, please contact: [phone] (9AM - 5PM [facility], Sunday-Sunday) Documents on File Type Date Recorded Patient Timber Robber Expl anation Healthcare Proxy 07/26/2020 HealthCare Proxy [facility] 07/26/2020 [facility] Care Teams Shift Supervisor Relationship Specialty Start Date End Date Neli Coley NP [address] [place] [address] [address] [place] [address] [email or web address] PCP - General Nurse Practitioner 06/01/25 Nakul Frankel MD [address] [place] [address] [address] [place] [address] ([email or web address]) [email or web address] Insurance Assigned Provider 09/26/25 Additional Source Comments The information contained in this document represents components of the legal health record. It is not the complete legal health record.[facility]
--- OUTSIDE RECORDS SUMMARY | 2025-11-09 10:35 | XMS_ITS | Encounter Summary ---
Author Organization [facility] Address [address] [employer] [facility] [address] [place] [address] Phone Care Team Providers Care Hacksaw Inspector Name Role Phone Ivonne Coley NP Primary Care Provider [phone] Nakul Frankel MD Primary Care Provider Ivonne Coley NP Primary Care Provider [phone] Nakul Frankel MD Unavailable [phone] Encounter Details Date Type Department Care Team (Late st Contact Info) Description 03/03/2025 Procedure Pass [facility] [address] [place] [address] Social History Tobacco Use Types Packs/Day Years Used Date Smoking Tobacco: Every Day Cigarettes 0.5 34 Started: 1989 Smokeless Tobacco: Never Alcohol Use Standard Drinks/Week Comments No 0 (1 standard drink = 0.6 oz pur e alcohol) hx of abuse, 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 No 02/04/2024 Education Answer Date Recorded Are you interested in help w ith more adult education (for example, completing high school, GED, job training, learning the Venezuelan language, technical skills, or developing parenting skills)? No 02/04/2024 Are you concerned about learning? Not on file 02/04/2024 No 02/04/2024 Yes 02/04/2024 Food Answer Date Recorded Within the past 6 months we worried whether our food would run out before we got money to buy more. Never True 02/04/2024 Within the past 6 months the food we bought just didn't last and we didn't have enough money to get more. Never True Residential Stability Answer Date Recor ded What is your housing situation today? I have shar gutierrez 02/04/2024 How many times have you moved in the past 12 sun th? One time 02/04/2024 Paying for Meds Answer Date Recorded Do you have trouble paying for medicines? No 02/04/2024 Paying Utility Bills Answer Date Record ed Do you have trouble paying your heating or elect ricity bill? No 02/04/2024 Transportation Answer Date Recorded Has the lack of transportati on kept you from medical appointments or from getting medications? No 02/04/2024 Unemployment Answer Date Recorded Are you currently unemployed or working on a part-time or temporary basis, and looking for work? No 02/28/2022 Digital Access Answer Date Recorded No 02/04/2024 Yes 02/04/2024 Do you have reliable internet access at home? Ye s 02/04/2024 Do you have a device (e.g., phone, tablet, computer) with a working camera? Yes 02/04/2024 SNAP & WIC Answer Date Recorded Do [...] as food, clothing, or medical care? No 03/03/2025 In the past 12 months have y ou been in a relationship with a person who hurts, threatens, or tries to control you? No 03/03/2025 Are you denied basic needs s uch as food, clothing, or medical care? No 03/03/2025 In the past 12 months have y ou been in a relationship with a person who hurts, threatens, or tries to control you? No 03/03/2025 Sex and Gender Information Value Date Recorded Sex Assigned at Not on file Legal Sex Male 7:34 PM EST Gender Identity Not on file Sexual Orientation Not on file documented as of this encounter Plan of Treatment Upcoming Encounters Date Type Department Care Team (Late st Contact Info) Description 03/29/2026 1:10 PM EDT Office Visit [facility] [address] [address] Ivonne Coley NP [address] [address] [email or web address] documented as of this encounter Visit Diagnoses Not on filedocumented in this encounter Additional Health Concerns Assessment Noted Time PHQ-2 Depression Total Score: 1 02/04/20 24 2:23 PM EDT documented as of this encounter Care Teams Hacksaw Inspector Relationship Specialty Start Date End Date Ivonne Coley NP [address] [place] [address] PCP - General Internal Medicine 04/04/24 04/30/25 Nakul Frankel MD [address] [place] [address] PCP - General Internal Medicine 05/01/25 05/31/25 Ivonne Coley NP [address] [place] [address] PCP - General Nurse Practitioner 06/01/25 Nakul Frankel MD [address] [place] [address] [address] [place] [address] [email or web address] Insurance Assigned Provider 09/26/25 documented as of this encounter Additional Source Comments The information contained in this document represents components of the legal health record. It is not the complete legal health record.[facility]
--- OUTSIDE RECORDS SUMMARY | 2025-11-09 10:36 | XMS_ITS | Encounter Summary ---
Author Organization [facility] Address [address] [place] [address] Phone Care Team Providers Care Abrasive Wheel Molder Name Role Phone Ivonne Coley NP Primary Care Provider [phone] Nakul Frankel MD Unavailable [phone] Reason for Visit * Reason Onset Date Comments Medication Refill 11/04/2025 CSRP Adderall 20 mg Encounter Details Date Type Department Care Team (Late st Contact Info) Description 11/04/2025 Refill [facility] 14 [facility] [address] [place], [place] [phone] Liz Bolden CMA 14 [place], [place] [id number] [email or web address] Medication Refill (CSRP Adderall 20 mg ) Social History Tobacco Use Types Packs/Day Years [...] high school, GED, job training, learning the Mongolian language, technical skills, or developing parenting skills)? [...] on file documented as of this encounter Progress Notes * Liz Bolden CMA - 11/04/2025 8:08 AM EST Rx Care Gap Status - Instructions for Clinical Staff (prescriber discretion applies): > Mismatch review guide > N/a - No action needed Visit Info Last visit: 09/17/2025 Ivonne Coley NP - Internal Medicine [facility] IM > Requested f/u: Return in about 6 months (around 03/17/2026) for Annual physical. Upcoming visit: 03/29/2026 Ivonne Coley NP - Internal Medicine [facility] ACTIONS TAKEN BY Liz Bolden CMA - Checked PDMP/MassPAT. 10/22/2025 #28 for 28 days Non-Opioid Controlled Substance Without PDMP Rx Protocol - dextroamphetamine/amphetamine Renewal is at prescriber discretion. Visit in the past 12 months: Yes documented in this encounter Plan of Treatment Upcoming Encounters Date Type Department Care Team ([facility] st Contact Info) Description 03/29/2026 1:10 PM EDT Office Visit [facility] 14 [facility] [address] [place] [address] Ivonne Coley NP 14 [facility] [address] [place] [address] [email or web address] documented as of this encounter Visit Diagnoses Diagnosis Attention deficit hyperactivity disorder (ADHD), predominantly inattentive type documented in this encounter Additional Health Concerns Assessment Noted Time PHQ-2 Depression Total Score: 2 03/25/20 25 2:26 PM EDT documented as of this encounter Care Teams Abrasive Wheel Molder Relationship Specialty Start Date End Date Ivonne Coley NP 14 [facility] [address] [place] [address] [email or web address] PCP - General Nurse Practitioner 06/01/25 Nakul Frankel MD 14 [facility] [address] [place] [address] [email or web address] Insurance Assigned Provider 09/26/25 documented as of this encounter Additional Source Comments The information contained in this document represents components of the legal health record. It is not the complete legal health record.[facility]
--- OUTSIDE RECORDS SUMMARY | 2025-11-09 10:36 | XMS_ITS | Encounter Summary ---
Author Organization [facility] Address [address] [facility] [address] [place] [address] Phone Care Team Providers Care Major Account Representative Name Role Phone Ivonne Coley NP Primary Care Provider Nakul Frankel MD Primary Care Provider [phone] Ivonne Coley NP Primary Care Provider Nakul Frankel MD Unavailable [phone] Nakul Frankel MD Primary Care Provider [phone] Ivonne Coley NP Primary Care Provider Nakul Frankel MD Primary Care Provider [phone] Ivonne Coley NP Primary Care Provider [phone] Nakul Frankel MD Unavailable [phone] Encounter Details Date Type Department Care Team (Late st Contact Info) Description 06/28/2020 Procedure Pass [facility] - [address] [place] [address] Social History Tobacco Use Types Packs/Day Years Used Date Smoking Tobacco: Every Day Cigarettes Smokeless Tobacco: Never Alcohol Use Standard Drinks/Week Comments No 0 (1 standard drink = 0.6 oz pur e alcohol) Child or Family Care Answer Date Record ed Do you have problems with on e of the following making it difficult for you to work, study, or receive health care? No 01/15/2019 Education Answer Date Recorded Are you interested in help w ith more adult education (for example, completing high school, GED, job training, learning the Salvadorean language, technical skills, or developing parenting skills)? Yes 01/15/2019 Are you concerned about learning? Not on file 01/15/2019 Not on file 01/15/2019 Not on file 01/15/2019 Food Answer Date Recorded Within the past 6 months we worried whether our food would run out before we got money to buy more. Never True 01/15/2019 Within the past 6 months the food we bought just didn't last and we didn't have enough money to get more. Never True 9 Paying for Meds Answer Date Recorded Do you have trouble paying for medicines? No 01/15/2019 Paying Utility Bills Answer Date Record ed Do you have trouble paying your heating or elect ricity bill? No 01/15/2019 Transportation Answer Date Recorded Has the lack of transportati on kept you from medical appointments or from getting medications? No 01/15/2019 Sex and Gender Information Value Date Recorded Sex Assigned at Not on file Legal Sex Male 7:34 PM EST Gender Identity Not on file Sexual Orientation Not on file documented as of this encounter Last Filed Vital Signs Vital Sign Reading Time Taken Comments Blood Pressure - - Pulse - - Temperature - - Respiratory Rate - - Oxygen Saturation - - Inhaled Oxygen Concentration - - Weight 115.7 kg (255 lb) 06/29/2020 11:02 AM EDT Height 172.7 cm (5' 8 ) 06/29/2020 11:02 AM EDT Body Mass Index 38.77 06/29/2020 11:02 AM EDT documented in this encounter Plan of Treatment Upcoming Encounters Date Type Department Care Team (Late st Contact Info) Description 03/29/2026 1:10 PM EDT Office Visit [facility] 14 [facility] [address] [place] [address] Ivonne Coley NP 14 [facility] [address] [place] [address] [email or web address] documented as of this encounter Visit Diagnoses Not on filedocumented in this encounter Additional Health Concerns Infection Onset Date Last Indicated Resolved Time 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 Utility 04/19/2015 04/19/2015 12/27/2022 1:[address] CoV-Exposed Comment:Recent close contact 11/15/2020 11/15/2020 11/29/2020 1:24 AM EST CoV-Risk 03/25/2024 03/26/2024 04/05/2024 1:22 AM EDT documented as of this encounter Care Teams Major Account Representative Relationship Specialty Start Date End Date Ivonne Coley NP [address] [place] [address] [email or web address] PCP - General Internal Medicine 10/31/18 06/28/20 Nakul Frankel MD [address] [place] [address] [email or web address] PCP - General Internal Medicine 06/29/20 07/06/20 Ivonne Coley NP [address] [place] [address] [email or web address] PCP - General Internal Medicine 07/07/20 09/25/23 Nakul Frankel MD [address] [place] [phone] [email or web address] PCP - General Internal Medicine 09/26/23 04/03/24 Ivonne Coley NP [address] [place] [address] [email or web address] PCP - General Internal Medicine 04/04/24 04/30/25 Nakul Frankel MD 14 [facility] [address] [place] [address] [email or web address] PCP - General Internal Medicine 05/01/25 05/31/25 Ivonne Coley NP [address] [place] [address] [email or web address] PCP - General Nurse Practitioner 06/01/25 Nakul Frankel MD [address] [place] [address] [email or web address] Insurance Assigned Provider 04/21/23 06/17/23 Nakul Frankel MD [address] [place] [address] [email or web address] Insurance Assigned Provider 09/26/25 documented as of this encounter Additional Source Comments The information contained in this document represents components of the legal health record. It is not the complete legal health record.[facility]
[2025-11-09 11:05] VITALS: BP 155/90; PULSE 80; RESP 18; TEMP 35.9; O2SAT 97
== END 2025-11-09 11:06 | disposition home or self-care (01) ==
PROVIDERS: Emergency Provider Emergency Medicine; PCP Nurse Practitioner Adult Health
DX: S09.90XA Unspecified injury of head, initial encounter (principal); S16.1XXA Strain of muscle, fascia and tendon at neck level, initial encounter; S46.911A Strain of unspecified muscle, fascia and tendon at shoulder and upper arm level, right arm, initial encounter; R51.9 Headache, unspecified; M54.2 Cervicalgia; W10.9XXA Fall (on) (from) unspecified stairs and steps, initial encounter; Y93.9 Activity, unspecified; Y92.9 Unspecified place or not applicable; Y99.8 Other external cause status
CPT/HCPCS: 70450; 72125; 73030; 99282; 99283

== ENCOUNTER → 2025-11-09 09:07 | Outpatient (BNV) | payer OTHER, SELFPAY | PROVIDERS: Emergency Provider Emergency Medicine; PCP Nurse Practitioner Adult Health; Visit Provider Radiology Diagnostic Radiology | DX: M47.812 Spondylosis without myelopathy or radiculopathy, cervical region (principal); M48.02 Spinal stenosis, cervical region; M19.012 Primary osteoarthritis, left shoulder; S09.90XA Unspecified injury of head, initial encounter | CPT/HCPCS: 70450; 72125; 73030 ==